=== PATIENT | female | born 1950 | race Caucasian/White ===

== ENCOUNTER 2020-08-01 14:03 | Outpatient (REF) | payer MEDICARE, OTHER, SELFPAY | END 2020-08-01 14:04 | disposition home or self-care (01) | LOC: HO.LNP 14:03 | PROVIDERS: Visit Provider Otolaryngology | DX: B37.0 Candidal stomatitis (principal) | CPT/HCPCS: 87102 ==

== ENCOUNTER 2020-08-09 08:59 | Outpatient (REF) | payer MEDICARE, OTHER, SELFPAY ==
--- NOTE | ~2020-08-09 | CT_ITS ---
EXAMINATION: CT SINUS WITHOUT CONTRAST CLINICAL INFORMATION: Sinonasal polyp, deviated nasal septum. COMPARISON: None. TECHNIQUE: Axial 2 mm thin and reformatted 2 mm sagittal and coronal images of the sinuses were obtained. This CT examination was performed using dose optimization techniques as appropriate, variously including the following: *Automated exposure control *Adjustment of mA and/or kV according to patient size (this includes techniques or standardized protocols for targeted exams where dose is matched to indication/reason for exam; i.e. extremities or head) *Use of iterative reconstruction technique DLP: 96 mGy-cm FINDINGS: There is complete opacification of bilateral frontal, maxillary, ethmoid and sphenoid sinuses consistent with pansinusitis. Bilateral frontoethmoidal and ostiomeatal complexes are completely obliterated from mucosal thickening. The bony sinus marr are intact. NASAL CAVITY/NASOPHARYNX: The nasal cavity is clear. There is minimal left nasal septal deviation/spurring. The nasopharynx is symmetric. ADDITIONAL RELEVANT FINDINGS: No periapical disease is seen. The TMJs articulate normally. The orbits and skull base soft tissues are unremarkable. The middle ear cavities and mastoid air cells are clear. Limited evaluation demonstrates no acute intracranial findings. CT/CT sinus wo con IMPRESSION: Chronic pansinusitis with obstructed drainage pathways. The bony sinus marr are intact. The nasal cavity and nasopharynx airway are widely patent.
== END 2020-08-09 09:00 | disposition home or self-care (01) ==
LOC: HO.CT 08:59
PROVIDERS: Visit Provider Otolaryngology
DX: J33.9 Nasal polyp, unspecified (principal)
CPT/HCPCS: 70486

== ENCOUNTER 2021-02-05 09:06 | Outpatient (REF) | payer MEDICARE, OTHER, SELFPAY ==
--- NOTE | ~2021-02-05 | MM_ITS ---
EXAMINATION: MM SCREENING DIGITAL BREAST TOMOSYNTHESIS, BILATERAL CLINICAL INFORMATION: Screening. Asymptomatic. The lifetime risk of breast cancer based on the Tyrer-Cuzick Model is 2.2%. COMPARISON: Mammography: February 02, 2020 and studies dating back to November 29, 2013 TECHNIQUE: Digital breast tomosynthesis is performed in both the craniocaudal and mediolateral oblique views along with computer-aided detection (CAD). Synthesized 2D images are generated from the tomosynthesis. FINDINGS: There are scattered areas of fibroglandular density (ACR BI-RADS breast composition Category b). There are no significant masses, abnormal calcifications, or other abnormalities. MM/MM tomosynthesis screening BI IMPRESSION: There are no significant changes from prior study. ASSESSMENT: BI-RADS 1: Negative RECOMMENDATION: Routine annual mammography screening. This patient's information was entered into a reminder system with a target due date for their next mammogram.
== END 2021-02-05 09:07 | disposition home or self-care (01) ==
LOC: HO.MAMMO 09:06
PROVIDERS: PCP Internal Medicine; Visit Provider Internal Medicine
DX: Z12.31 Encounter for screening mammogram for malignant neoplasm of breast (principal)
CPT/HCPCS: 77063; 77067

== ENCOUNTER 2022-02-12 08:01 | Outpatient (REF) | payer MEDICARE, OTHER, SELFPAY ==
--- NOTE | ~2022-02-12 | MM_ITS ---
EXAMINATION: MM SCREENING DIGITAL BREAST TOMOSYNTHESIS, BILATERAL CLINICAL INFORMATION: Screening. Asymptomatic. The lifetime risk of breast cancer based on the Tyrer-Cuzick Model is 2%. COMPARISON: Mammography: 02/05/2021, 02/02/2020, 10/15/2018 TECHNIQUE: Digital breast tomosynthesis is performed in both the craniocaudal and mediolateral oblique views along with computer-aided detection (CAD). Synthesized 2D images are generated from the tomosynthesis. FINDINGS: There are scattered areas of fibroglandular density (ACR BI-RADS breast composition Category b). There are no significant masses, abnormal calcifications, or other abnormalities. Parenchymal pattern is similar to prior studies. There is no developing density or architectural abnormality. The axilla and skin contours are unremarkable. No significant changes. MM/MM tomosynthesis screening BI IMPRESSION: No mammographic evidence of malignancy. ASSESSMENT: BI-RADS 1: Negative RECOMMENDATION: Routine annual mammography screening. This patient's information was entered into a reminder system with a target due date for their next mammogram.
== END 2022-02-12 08:02 | disposition home or self-care (01) ==
LOC: HO.MAMMO 08:01
PROVIDERS: PCP Internal Medicine; Visit Provider Family Medicine
DX: Z12.31 Encounter for screening mammogram for malignant neoplasm of breast (principal)
CPT/HCPCS: 77063; 77067

== ENCOUNTER 2023-02-19 11:03 | Outpatient (REF) | payer MEDICARE, OTHER, SELFPAY ==
--- NOTE | ~2023-02-19 | MM_ITS ---
EXAMINATION: MM SCREENING DIGITAL BREAST TOMOSYNTHESIS, BILATERAL CLINICAL INFORMATION: Screening. Asymptomatic. COMPARISON: Mammography: This study is compared with prior exams dating back to 2018. TECHNIQUE: Digital breast tomosynthesis is performed in both the craniocaudal and mediolateral oblique views along with computer-aided detection (CAD). Synthesized 2D images are generated from the tomosynthesis. FINDINGS: There are scattered areas of fibroglandular density (ACR BI-RADS breast composition Category b). There are no significant masses, abnormal calcifications, or other abnormalities. There is a tissue marker in the right breast from prior benign percutaneous biopsy. There are a few, bilateral, benign calcifications. MM/MM tomosynthesis screening BI IMPRESSION: No mammographic evidence of malignancy. ASSESSMENT: BI-RADS BI-RADS 2 - Benign Findings RECOMMENDATION: Routine annual mammography screening. 1 year F/U This examination should not preclude the clinical evaluation of a suspicious palpable abnormality. This patient's information was entered into a reminder system with a target due date for their next mammogram.
== END 2023-02-19 11:04 | disposition home or self-care (01) ==
LOC: HO.MAMMO 11:03
PROVIDERS: Visit Provider Internal Medicine
DX: Z12.31 Encounter for screening mammogram for malignant neoplasm of breast (principal)
CPT/HCPCS: 77063; 77067

== ENCOUNTER → 2023-02-19 11:15 | Outpatient (BNV) | payer MEDICARE, OTHER, SELFPAY | PROVIDERS: Visit Provider Radiology Diagnostic Radiology | DX: Z12.31 Encounter for screening mammogram for malignant neoplasm of breast (principal) | CPT/HCPCS: 77063; 77067 ==

== ENCOUNTER 2024-02-26 09:09 | Outpatient (REF) | payer MEDICARE, OTHER, SELFPAY ==
--- NOTE | ~2024-02-26 | MM_ITS ---
EXAMINATION: MM SCREENING DIGITAL BREAST TOMOSYNTHESIS, BILATERAL CLINICAL INFORMATION: Screening. Asymptomatic. COMPARISON: Mammography: Comparison is made with available priors TECHNIQUE: Digital breast mammography with tomosynthesis is performed in both the craniocaudal and mediolateral oblique views along with computer-aided detection (CAD). FINDINGS: The breasts are heterogeneously dense, which may obscure small masses (ACR BI-RADS breast composition Category c). There are no significant masses, abnormal calcifications, or other abnormalities. MM/MM tomosynthesis screening BI IMPRESSION: No mammographic evidence of malignancy. ASSESSMENT: BI-RADS BI-RADS 1 - Negative RECOMMENDATION: Routine annual mammography screening. 1 year F/U This examination should not preclude the clinical evaluation of a suspicious palpable abnormality. This patient's information was entered into a reminder system with a target due date for their next mammogram. Electronically signed by: Brittni Peña DO 03/09/2024 12:14 PM EDT
== END 2024-02-26 09:10 | disposition home or self-care (01) ==
LOC: HO.MAMMO 09:09
PROVIDERS: Visit Provider Internal Medicine
DX: Z12.31 Encounter for screening mammogram for malignant neoplasm of breast (principal)
CPT/HCPCS: 77063; 77067

== ENCOUNTER → 2024-02-26 09:30 | Outpatient (BNV) | payer MEDICARE, OTHER, SELFPAY | PROVIDERS: Visit Provider Internal Medicine | DX: Z12.31 Encounter for screening mammogram for malignant neoplasm of breast (principal) | CPT/HCPCS: 77063; 77067 ==

== ENCOUNTER 2025-03-07 11:14 | Outpatient (REF) | payer MEDICARE, OTHER, SELFPAY ==
--- NOTE | ~2025-03-07 | MM_ITS ---
EXAMINATION: MM SCREENING DIGITAL BREAST TOMOSYNTHESIS, BILATERAL CLINICAL INFORMATION: Screening. Asymptomatic. COMPARISON: Mammography: Comparison is made with available priors TECHNIQUE: Digital breast mammography with tomosynthesis is performed in both the craniocaudal and mediolateral oblique views along with computer-aided detection (CAD). FINDINGS: The breasts are heterogeneously dense, which may obscure small masses. There are no significant masses, abnormal calcifications, or other abnormalities. MM/MM tomosynthesis screening BI IMPRESSION: No mammographic evidence of malignancy. ASSESSMENT: BI-RADS Category 1: Negative RECOMMENDATION: Routine annual mammography screening. 1 year F/U This examination should not preclude the clinical evaluation of a suspicious palpable abnormality. This patient's information was entered into a reminder system with a target due date for their next mammogram. Electronically signed by: Brittni Peña DO 03/08/2025 06:01 PM EDT
--- OUTSIDE RECORDS SUMMARY | 2025-03-07 13:51 | XMS_ITS | Encounter Summary ---
Author Organization [facility], Address [address] [place] [address] Phone Care Team Providers Care Natural Resources Faculty Member Name Role Phone Azam Nicolas MD Primary Care Provider + [phone] Reason for Visit * Reason Comments Med Refill Encounter Details Date Type Department Care Team (Late st Contact Info) Description 09/22/2021 Refill [facility] [address] [place] [phone] Andressa Samuel PA [address] [place] [address] [place] [phone] Social History Tobacco Use Types Packs/Day Years Used Date Smoking Tobacco: Never Alcohol Use Standard Drinks/Week Comments No 0 (1 standard drink = 0.6 oz pure alcohol) Alcoholic Drinks/day: Occasional social drink Comments Unknown Sex and Gender Information Value Date Recorded Sex Assigned at Female 03/20/2021 10:28 AM EDT Legal Sex Female 4:32 PM EST Gender Identity Female 01/02/2021 8:53 PM EDT Sexual Orientation Straight 03/20/2021 10 :28 AM EDT documented as of this encounter Plan of Treatment Upcoming Encounters Date Type Department Care Team (Late st Contact Info) Description 04/04/2025 1:30 PM EST Clinical Support [facility], [address] [place] [phone] 04/04/2025 2:15 PM EST Clinical Support [facility] [address] [place] [address] Galina Hernandez, [facility]- [address] [place] [address] documented as of this encounter Visit Diagnoses Not on filedocumented in this encounter Care Teams Natural Resources Faculty Member Relationship Specialty Start Date End Date zAam Nicolas MD [address] [place] [address], [address] [place] [address] PCP - General Internal Medicine 10/29/21 documented as of this encounter
--- OUTSIDE RECORDS SUMMARY | 2025-03-07 13:51 | XMS_ITS | Encounter Summary ---
Author Organization [facility] Address [address] [place] [address] Phone Care Team Providers Care Chief Lifestyle Officer Name Role Phone Azam Nicolas MD Primary Care Provider + [phone] Jewel Casanova MD Unavailable +[phone] Naif Blanco MD Unavailable +[phone] Vanesa Soliman MD Unavailable [phone] Azam Nicolas MD Unavailable [phone] Debbie Mendes MD Unavailable [phone] Kristy Zazueta MD Unavailable [phone] Canelo Baron MD Unavailable [phone] Palmira Aiken OT Unavailable [phone] Encounter Details Date Type Department Care Team (Late st Contact Info) Description 11/06/2021 Procedure Pass [facility], [facility] - [address] [address] Social History Tobacco Use Types Packs/Day Years Used Date Smoking Tobacco: Former Cigarettes 10 15 1 965 - 1979 Smokeless Tobacco: Never Comments:Quit smoking 1979 Alcohol Use Standard Drinks/Week Comments Not Currently 0 (1 standard drink = 0.6 oz pur e alcohol) occasionally Comments No Sex and Gender Information Value Date Recorded Sex Assigned at Female 11/02/2019 5:38 PM EDT Legal Sex Female 10:05 PM EDT Gender Identity Female 11/02/2019 5:38 PM EDT Sexual Orientation Straight 11/02/2019 5: 38 PM EDT Occupation Industry Job Start Date Job End Date [employer], director, [employer] Not on file Not on file Not on file documented as of this encounter Plan of Treatment Upcoming Encounters Date Type Department Care Team (Late st Contact Info) Description 04/01/2025 9:00 AM EST [facility] Visit [facility] [address] [place] [address] Canelo Baron MD [address] [place] [address], [address] [place] [address] 05/04/2025 10:00 AM EST Office Visit [facility] [address] [place] [phone] Unknown, Unknown, Suzanne Flynn, LUDLOW MACHINE OPERATOR [address] [place] [address] 08/30/2025 11:00 AM EDT Office Visit [facility] [address] [place] [address] Azam Nicolas MD [address] [place] [address], [address] [place] [address] documented as of this encounter Visit Diagnoses Not on filedocumented in this encounter Additional Health Concerns Infection Onset Date Last Indicated Resolved Time COVID-19 11/12/2022 11/12/2022 12/03/2022 1:21 AM EDT CoV-Risk Comment:Per note documentation 04/04/2024 04/04/2024 7:56 AM EST Assessment Noted Time PHQ-2 Depression Total Score: 0 04/27/20 21 12:22 PM EST documented as of this encounter Care Teams Chief Lifestyle Officer Relationship Specialty Start Date End Date Azam Nicolas MD [address] [place] [address], [address] [place] [address] [email or web address] PCP - General Internal Medicine 09/22/20 Jewel Casanova MD [address] [place] [address] Gastroenterology 11/09/20 Naif Blanco MD [address] [place] [address], [facility] [place] [address] [email or web address] 11/09/20 Vanesa Soliman MD [address] [place] [address] [email or web address] Ophthalmology 11/09/20 Azam Nicolas MD [address] [place] [address], [address] [place] [address] [email or web address] Insurance Assigned Provider 08/23/23 Debbie Mendes MD [address] [place] [address], [address] [place] [address] Surgeon Urology 10/29/21 Kristy Zazueta MD [address] [place] [address], [address] [place] [address] [email or web address] Otolaryngology 10/29/21 Canelo Baron MD [address] [place] [address], [address] [place] [address] [email or web address] Obstetrics and Gynecology 10/29/21 Palmira Aiken, OT [address] [place] [address] [email or web address] Transitions Home Restoration Service SupervisorPest Control Worker Therapy 10/04/24 10/04/24 documented as of this encounter Additional Source Comments The information contained in this document represents components of the legal health record. It is not the complete legal health record.[facility]
--- OUTSIDE RECORDS SUMMARY | 2025-03-07 13:51 | XMS_ITS | Encounter Summary ---
Author Organization [facility] Address [address] [place] [address] Phone Care Team Providers Care Electrical Systems Drafter Name Role Phone Anita Blas DO Primary Care Provider + [phone] Anita Blas DO Unavailable [phone] Azam Nicolas MD Primary Care Provider [phone] Jewel Casanova MD Unavailable [phone] Naif Blanco MD Unavailable [phone] Vanesa Soliman MD Unavailable [phone] Anita Blas DO Unavailable [phone] Azam Nicolas MD Unavailable [phone] Debbie Mendes MD Unavailable [phone] Kristy Zazueta MD Unavailable [phone] Canelo Baron MD Unavailable [phone] Palmira Aiken OT Unavailable [phone] Encounter Details Date Type Department Care Team (Late st Contact Info) Description 04/11/2020 Procedure Pass [facility] Admitting Dept Virtual Department [address] [place], [place] [phone] Social History Tobacco Use Types Packs/Day Years [...] Orientation Straight 11/02/2019 5: 38 PM EDT documented as of this encounter Plan of Treatment Upcoming Encounters Date Type Department Care Team (Late st Contact Info) Description 04/01/2025 9:00 AM EST Office [facility] [address] [place] [address] [place] [address] Canelo Baron MD [address] [place] [address], [address] [place] [address] 05/04/2025 10:00 AM EST Office Visit [facility] [address] [place] [address] Unknown, Unknown, Suzanne Flynn, SHOPPER [address] [place] [address] [email or web address] 08/30/2025 11:00 AM EDT Office [facility] [address] [place] [address] Azam Nicolas MD [address] [place] [address], [address] [place] [address] documented as of this encounter Visit Diagnoses Not on filedocumented in this encounter Additional Health Concerns Infection Onset Date Last Indicated Resolved Time COVID-19 11/12/2022 11/12/2022 12/03/2022 1:21 AM EDT CoV-Risk Comment:Per note documentation 04/04/2024 04/04/2024 7:56 AM EST documented as of this encounter Care Teams Electrical Systems Drafter Relationship Specialty Start Date End Date Anita Blas DO [address] [place] [address] [email or web address] PCP - General Family Medicine 11/01/19 09/21/20 Azam Nicolas MD [address] [place] [address], [address] [place] [address] [email or web address] PCP - General Internal Medicine 09/22/20 Anita Blas DO [address] [place] [address] [email or web address] Insurance Assigned Provider 08/26/20 09/19/20 Jewel Casanova MD [address] [place] [address] [email or web address] Gastroenterology 11/09/20 Naif Blanco MD [address] [place] [address] [email or web address] Nephrology 11/09/20 Vanesa Soliman MD [address] [place] [address] [email or web address] [email or web address] 11/09/20 Anita Blas DO [address] [place] [address] [email or web address] Insurance Assigned Provider 08/26/20 08/25/21 Azam Nicolas MD [address] [place] [address], [address] [place] [address] Insurance Assigned Provider 08/23/23 Debbie Mendes MD [address] [place] [address], [address] [place] [address] Surgeon Urology 10/29/21 Kristy Zazueta MD [address] [place] [address], [address] [place] [address] Otolaryngology 10/29/21 aCnelo Baron MD [address] [place] [address], [address] [place] [address] Obstetrics and Gynecology 10/29/21 Palmira Aiken, OT [address] [place] [address] [email or web address] Transitions Bacteriology TeacherOracle Applications Analyst Therapy 10/04/24 10/04/24 documented as of this encounter Additional Source Comments The information contained in this document represents components of the legal health record. It is not the complete legal health record.[facility]
--- OUTSIDE RECORDS SUMMARY | 2025-03-07 13:51 | XMS_ITS | Encounter Summary ---
Author Organization [facility] Address [address] [place] [address] [place] [address] Phone Care Team Providers Care Assistant Womens Volleyball Coach Name Role Phone Azam Nicolas MD Primary Care Provider + [phone] Jewel Casanova MD Unavailable +[phone] Naif Blanco MD Unavailable [phone] Vanesa Soliman MD Unavailable [phone] Azam Nicolas MD Unavailable [phone] Debbie Mendes MD Unavailable [phone] Kristy Zazueta MD Unavailable [phone] Canelo Baron MD Unavailable [phone] Palmira Aiken OT Unavailable [phone] Encounter Details Date Type Department Care Team (Late st Contact Info) Description 10/03/2024 Procedure Pass [place] Admitting Dept - Virtual Department [address] [place], [place] [id number] Social History Tobacco Use Types Packs/Day Years Used Date Smoking Tobacco: Former Cigarettes 10 15 1 965 - 1979 Smokeless Tobacco: Never Comments:Quit smoking 1979 Alcohol Use Standard Drinks/Week Comments Not Currently 0 (1 standard drink = 0.6 oz pur e alcohol) occasionally Home Health Assessment: Transportation Answer Date Recorded Lack of Transportation (Medical) No 10/05/2024 Lack of Transportation (Non-Medical) No 10/05/2024 Patient Unable or Declines to Respond No 10/05/2024 Education Answer Date Recorded Are you interested in more education? Not on patrick e 09/13/2022 Are you concerned about learning? Not on file 09/13/2022 No 09/13/2022 No 09/13/2022 Food Answer Date Recorded Within the past 6 months we worried whether our food would run out before we got money to buy more. Never True 10/02/2024 Within the past 6 months the food we bought just didn't last and we didn't have enough money to get more. Never True Residential Stability Answer Date Recor ded What is your housing situation today? I have moi sing 10/02/2024 How many times have you move d in the past 12 months? Zero (I did not move) 10/02/2024 Paying for Meds Answer Date Recorded Do you have trouble paying for medicines? No 10/02/2024 Paying Utility Bills Answer Date Record ed Do you have trouble paying your heating or elect ricity bill? No 10/02/2024 Transportation Answer Date Recorded Has the lack of transportati on kept you from medical appointments or from getting medications? No 10/02/2024 Digital Access Answer Date Recorded No 10/02/2024 Yes 10/02/2024 Do you have reliable internet access at home? Ye s 10/02/2024 Do you have a device (e.g., phone, tablet, computer) with a working camera? Yes 10/02/2024 Intimate Partner Violence Answer Date R ecorded Are you denied basic needs s uch as food, clothing, or medical care? No 10/02/2024 In the past 12 months have y ou been in a relationship with a person who hurts, threatens, or tries to control you? No 10/02/2024 Are you denied basic needs s uch as food, clothing, or medical care? No 10/02/2024 In the past 12 months have y ou been in a relationship with a person who hurts, threatens, or tries to control you? No 10/02/2024 Comments No Sex and Gender Information Value [...] [facility] [address] [place] [address] [place] [address] Canelo Baron MD [address] [place] [address], [address] [place] [address] 05/04/2025 10:00 AM EST Office Visit [facility] [address] [place] [address] Unknown, Unknown, Suzanne Flynn, DIVISION TRAFFIC SUPERINTENDENT [address] [place] [address] 08/30/2025 11:00 AM EDT Office [facility] [address] [place] [address] Azam Nicolas MD [address] [place] [address], [address] [place] [address] documented as of this encounter Visit Diagnoses Not on filedocumented in this encounter Additional Health Concerns Assessment Noted Time PHQ-2 Depression Total Score: 0 08/11/19 25 7:14 PM EDT documented as of this encounter Care Teams Assistant Womens Volleyball Coach Relationship Specialty Start Date End Date Azam Nicolas MD [address] [place] [address], [address] [place] [address] [email or web address] PCP - General Internal Medicine 09/22/20 Jewel Casanova MD [address] [place] [address] Gastroenterology 11/09/20 Naif Blanco MD [address] [place] [address], [place] [address] [email or web address] [email or web address] 11/09/20 Vanesa Soliman MD [address] [place] [address] [email or web address] Ophthalmology 11/09/20 Azam Nicolas MD [address] [place] [address], [address] [place] [address] [email or web address] Insurance Assigned Provider 08/23/23 Debbie Mendes MD [address] [place] [address], [address] [place] [address] Surgeon Urology 10/29/21 Kristy Zazueta MD [address] [place] [address], [address] [place] [address] [email or web address] Otolaryngology 10/29/21 Canelo Baron MD [address] [place] [address], [address] [place] [address] Obstetrics and Gynecology 10/29/21 Palmira Aiken, OT [address] [place] [address] (work) [email or web address] Transitions Tray ServerNewspaper Illustrator Therapy 10/04/24 10/04/24 documented as of this encounter Additional Source Comments The information contained in this document represents components of the legal health record. It is not the complete legal health record.[facility]
--- OUTSIDE RECORDS SUMMARY | 2025-03-07 13:51 | XMS_ITS | Encounter Summary ---
Author Organization [facility] Address [address] [place] [address] Phone Care Team Providers Care Programmer Business Name Role Phone Azam Nicolas MD Primary Care Provider [phone] Jewel Casanova MD Unavailable [phone] Naif Blanco MD Unavailable [phone] Vanesa Soliman MD Unavailable [phone] Azam Nicolas MD Unavailable [phone] Debbie Mendes MD Unavailable [phone] Kristy Zazueta MD Unavailable [phone] Canelo Baron MD Unavailable [phone] Palmira Aiken OT Unavailable [phone] Reason for Referral * MRI/CAT Scan - Closed Specialty Diagnoses / Procedures Referred By Contac t Referred To Contact Radiology Diagnoses Other allergic rhinitis Nasal congestion Disturbance of smell and taste Procedures CT Face CHG CT SCAN,MAXILLOFACIAL AREA,W/O CONTRAST Genie West MD Phone: tel: fax: [email or web address] Referral ID Status Reason Start Date Expiration Date Visits Re quested Visits Authorized [id number] Closed 11/06/2021 01/05/2022 1 1 Encounter Details Date Type Department Care Team (Late Contact Info) Description 11/06/2021 Transcribe Orders Virtual Department [address] [place] [address] Genie West MD [address] [place] [address] [email or web address] Other allergic rhinitis (Primary Dx); Nasal congestion; Disturbance of smell and taste Social History Tobacco Use Types Packs/Day Years Used Date Smoking Tobacco: Former Cigarettes 1979 Smokeless Tobacco: Never Comments:Quit smoking 1979 [...] Start Date 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 Not on file Not on file Not on file documented as of this encounter Plan of Treatment Upcoming Encounters Date Type Department Care Team (Late Contact Info) Description 04/01/2025 9:00 AM EST Office [facility] [address] [place] [address] [place] [address] Canelo Baron MD [address] [place] [address], [address] [address] 05/04/2025 10:00 AM EST Office Visit [facility] [address] [place] [address] Unknown, Unknown, Suzanne Flynn, STOCK DEALER [address] [place] [address] 08/30/2025 11:00 AM EDT Office Visit [facility] [address] [place] [address] Azam Nicolas MD [address] [facility], [address] [place] [address] [email or web address] documented as of this encounter Results * CT FACE (SINUS) WITHOUT CONTRAST (11/20/2021 3:50 PM EDT) Anatomical Region Laterality Modality Face Computed Tomogra phy 11/21/2021 10:4 9 AM EDT Impressions 11/21/2021 11:02 AM EDT 1.Severe mucosal thickening of the ethmoid air cells and maxillary and sphenoid sinuses with near complete opacification. 2.Mildly atelectatic right maxillary sinus with mild wall thickening and sclerosis, consistent with chronic sinusitis. 3.Small amount of fluid in the right mastoid air cells. 4.Mild-moderate leftward deviation of the nasal septum. Narrative 11/21/2021 11:[address] FACE (SINUS) WITHOUT CONTRAST TECHNIQUE: Multidetector-row CT of the sinuses was performed without intravenous contrast using tailored dose modulation techniques. Images were reconstructed in the axial, coronal, and sagittal planes. COMPARISON: None FINDINGS: Frontal sinuses: Hypoplastic Frontoethmoidal junctions: Opacified on the left Anterior and posterior ethmoid air cells: Severe mucosal thickening with near complete opacification Maxillary sinuses and infundibula: Severe mucosal thickening of the mildly atelectatic right maxillary sinus with near complete opacification. Mild diffuse osseous wall thickening/sclerosis, consistent with chronic sinusitis Complete opacification of the left maxillary sinus. Bilateral infundibular obstruction primarily due to mucosal thickening, and agger nasi cells Sphenoid sinuses and sphenoethmoidal recesses: Near complete opacification, left worse than right Nasal cavity: Mild to moderate leftward deviation of the nasal septum Imaged maxillary teeth: Unremarkable Mastoid air cells and middle ear cavities: Small amount of fluid in the right mastoid air cells. The left mastoid air cells are clear Temporomandibular joints: Mild to moderate degenerative changes on the right Brain: Images of the brain parenchyma are not of diagnostic quality for the soft tissues. No focal abnormality is visible with this technique. Orbits and globes: Bilateral ocular lens implants Procedure Note Kiley Rivas MD - 11/21/2021 CT FACE (SINUS) WITHOUT CONTRAST TECHNIQUE: Multidetector-row CT of the sinuses was performed withoutintravenous contrast using tailored dose modulation techniques. Imageswere reconstructed in the axial, coronal, and sagittal planes. COMPARISON: None FINDINGS: Frontal sinuses: Hypoplastic Frontoethmoidal junctions: Opacified on the left Anterior and posterior ethmoid air cells: Severe mucosal thickening withnear complete opacification Maxillary sinuses and infundibula: Severe mucosal thickening of the mildlyatelectatic right maxillary sinus with near complete opacification. Milddiffuse osseous wall thickening/sclerosis, consistent with chronicsinusitis Complete opacification of the left maxillary sinus. Bilateral infundibular obstruction primarily due to mucosal thickening,and agger nasi cells Sphenoid sinuses and sphenoethmoidal recesses: Near completeopacification, left worse than right Nasal cavity: Mild to moderate leftward deviation of the nasal septum Imaged maxillary teeth: Unremarkable Mastoid air cells and middle ear cavities: Small amount of fluid in theright mastoid air cells. The left mastoid air cells are clear Temporomandibular joints: Mild to moderate degenerative changes on theright Brain: Images of the brain parenchyma are not of diagnostic quality forthe soft tissues. No focal abnormality is visible with this technique. Orbits and globes: Bilateral ocular lens implants IMPRESSION: 1.Severe mucosal thickening of the ethmoid air cells and maxillary andsphenoid sinuses with near complete opacification. 2.Mildly atelectatic right maxillary sinus with mild wall thickening andsclerosis, consistent with chronic sinusitis. 3.Small amount of fluid in the right mastoid air cells. 4.Mild-moderate leftward deviation of the nasal septum. Genie West MD IMG CT HEAD/NECK Fin al Result documented in this encounter Visit Diagnoses Diagnosis Other allergic rhinitis- Primary Nasal congestion Other diseases of nasal cavity and sinuses Disturbance of smell and taste Other allergic rhinitis Nasal congestion Other diseases of nasal cavity and sinuses Disturbance of smell and taste documented in this encounter Additional Health Concerns Infection Onset Date Last Indicated Resolved Time COVID-19 11/12/2022 11/12/2022 12/03/2022 1:21 AM EDT CoV-Risk Comment:Per note documentation 04/04/2024 04/04/2024 7:56 AM EST Assessment Noted Time PHQ-2 Depression Total Score: 0 04/27/20 12:22 PM EST documented as of this encounter Care Teams Programmer Business Relationship Specialty Start Date End Date Azam Nicolas MD [address] [place] [address], [address] [address] [email or web address] PCP - General Internal Medicine 09/22/20 Jewel Casanova MD [address] [place] [address] [email or web address] Gastroenterology 11/09/20 Naif Blanco MD [address] [place] [address] [place] [address] [email or web address] 11/09/20 Vanesa Soliamn MD [address] [place] [address] [email or web address] Ophthalmology 11/09/20 Azam Nicolas MD [address] [place] [address], [address] [place] [address] [email or web address] Insurance Assigned Provider 08/23/23 Debbie Mendes MD [address] [place] [address], [address] [place] [address] [email or web address] Surgeon Urology 10/29/21 Kristy Zazueta MD [address] [place] [address], [address] [place] [address] [email or web address] Otolaryngology 10/29/21 Canelo Baron MD [address] [place] [address], [address] [place] [address] Obstetrics and Gynecology 10/29/21 Palmira Aiken, OT [address] [place] [address] [email or web address] Transitions Steam EngineerGrain Packer Therapy 10/04/24 10/04/24 documented as of this encounter Additional Source Comments The information contained in this document represents components of the legal health record. It is not the complete legal health record.[facility]
--- OUTSIDE RECORDS SUMMARY | 2025-03-07 13:52 | XMS_ITS | Encounter Summary ---
Author Organization [facility] Address [address] [place] [address] [place] [address] Phone Care Team Providers Care Presser First Name Role Phone Azam Nicolas MD Primary Care Provider + [phone] Jewel Casanova MD Unavailable [phone] Naif Blanco MD Unavailable [phone] Vanesa Soliman MD Unavailable [phone] Azam Nicolas MD Unavailable [phone] Debbie Mendes MD Unavailable [phone] Kristy Zazueta MD Unavailable [phone] Canelo Baron MD Unavailable [phone] Palmira Aiken OT Unavailable [phone] Encounter Details Date Type Department Care Team (Late st Contact Info) Description 04/04/2024 Procedure Pass [facility], Ct Scan - [facility] [address] [place] [address] Social History Tobacco Use Types Packs/Day Years Used Date Smoking Tobacco: Former Cigarettes 10 15 1 965 - 1979 Smokeless Tobacco: Never Comments:Quit smoking 1979 Alcohol Use Standard Drinks/Week Comments Not Currently 0 (1 standard drink = 0.6 oz pur e alcohol) occasionally Education Answer Date Recorded Are you interested in more education? Not on patrick e 09/13/2022 Are you concerned about learning? Not on file 09/13/2022 No 09/13/2022 No 09/13/2022 Food Answer Date Recorded Within the past 6 months we worried whether our food would run out before we got money to buy more. Never True 04/04/2024 Within the past 6 months the food we bought just didn't last and we didn't have enough money to get more. Never True Residential Stability Answer Date Recor ded What is your housing situation today? I have moi sing 04/04/2024 How many times have you move d in the past 12 months? Zero (I did not move) 04/04/2024 Paying for Meds Answer Date Recorded Do you have trouble paying for medicines? No 04/04/2024 Paying Utility Bills Answer Date Record ed Do you have trouble paying your heating or elect ricity bill? No 04/04/2024 Transportation Answer Date Recorded Has the lack of transportati on kept you from medical appointments or from getting medications? No 04/04/2024 Digital Access Answer Date Recorded No 04/04/2024 Yes 04/04/2024 Do you have reliable internet access at home? Ye s 04/04/2024 Do you have a device (e.g., phone, tablet, computer) with a working camera? Yes 04/04/2024 Intimate Partner Violence Answer Date R ecorded Are you denied basic needs s [facility] as food, clothing, or medical care? No 04/04/2024 In the past 12 months have y ou been in a relationship with a person who hurts, threatens, or tries to control you? No 04/04/2024 Are you denied basic needs s [facility] as food, clothing, or medical care? No 04/04/2024 In the past 12 months have y ou been in a relationship with a person who hurts, threatens, or tries to control you? No 04/04/2024 Comments No Sex and Gender Information Value Date Recorded Sex Assigned at Female 11/02/2019 5:38 PM EDT Legal Sex Female 10:05 PM EDT Gender Identity Female 11/02/2019 5:38 PM EDT Sexual Orientation Straight 11/02/2019 5: 38 PM EDT Occupation Industry Job Start Date Job End Date [employer], director, [employer] Not on file Not on file Not on file documented as of this encounter Functional Status * Calculated C-SSRS Risk Score (Lifetime/Recent) Answer Date of Assessment Author No Risk Indicated 04/04/2024 11:12 AM Madhav Mcleod RN * [place] Suicide Severity Rating Scale (Screener/Recent Self-Report) Question Answer Date of Assessment Author 1. Wish to be (Past 1 Month) No 04/04/2024 11:12 AM Lupe Mcleod RN 2. Non-Specific Active Suicidal Thoughts (Past 1 Month) No 04/04/2024 11:12 AM Lupe Mcleod RN 6. Suicidal Behavior (Lifetime) No 04/04/2024 11:12 AM Lupe Mcleod RN documented as of this encounter Plan of Treatment Upcoming Encounters Date Type Department Care Team (Late st Contact Info) Description 04/01/2025 9:00 AM EST Office Visit [facility] [address] [place] [address] [place] [address] Canelo Baron MD [address] [place] [address], [address] [place] [address] 05/04/2025 10:00 AM EST Office Visit [facility] [address] [place] [address] Unknown, Unknown, Suzanne Flynn, TWIST MAKER [address] [place] [id number] 08/30/2025 11:00 AM EDT Office Visit [facility] [address] [place] [address] [place] [address] Azam Nicolas MD [address] [place] [address], [address] [place] [address] documented as of this encounter Visit Diagnoses Not on filedocumented in this encounter Additional Health Concerns Infection Onset Date Last Indicated Resolved Time CoV-Risk Comment:Per note documentation 04/04/2024 04/04/2024 4 7:56 AM EST Assessment Noted Time PHQ-2 Depression Total Score: 0 04/27/20 23 4:12 PM EST documented as of this encounter Care Teams Presser First Relationship Specialty Start Date End Date Azam Nicolas MD [address] [place] [address], [address] [place] [address] [email or web address] PCP - General Internal Medicine 09/22/20 Jewel Casanova MD [address] [place] [address] Gastroenterology 11/09/20 Naif Blanco MD [address] [place] [address] [email or web address] 11/09/20 Vanesa Soliman MD [address] [place] [address] [email or web address] Ophthalmology 11/09/20 Azam Nicolas MD [address] [place] [address], [address] [place] [address] [email or web address] Insurance Assigned Provider 08/23/23 Debbie Mendes MD [address] [place] [address], [address] [place] [address] Surgeon Urology 10/29/21 Kristy Zazueta MD [address] [place] [address], [address] [place] [address] [email or web address] Otolaryngology 10/29/21 Canelo Baron MD [address] [place] [address], [address] [place] [address] Obstetrics and Gynecology 10/29/21 Palmira Aiken, OT [address] [place] [address] [email or web address] Transitions BoatwrightAutomatic Gluing Machine Operator Therapy 10/04/24 10/04/24 documented as of this encounter Additional Source Comments The information contained in this document represents components of the legal health record. It is not the complete legal health record.[facility]
--- OUTSIDE RECORDS SUMMARY | 2025-03-07 13:52 | XMS_ITS | Encounter Summary ---
Author Organization [facility] Address [address] [place] [address] Phone Care Team Providers Care Deputy Jailer Name Role Phone Azam Nicolas MD Primary Care Provider + [phone] Reason for Visit * Reason Onset Date Comments Med Refill 10/31/2022 Encounter Details Date Type Department Care Team (Late st Contact Info) Description 10/31/2022 Refill [facility] [address] [place] [address] Andressa Samuel PA [address] [place] [address] [place] [phone] Social History Tobacco Use Types Packs/Day Years [...] Clinical Support [facility] [address] [facility] [address] 04/04/2025 2:15 PM EST Clinical Support [facility] [place] [address] [place] [address] Galina Hernandez FNP-[place] [address] [place] [address] documented as of this encounter Visit Diagnoses Not on filedocumented in this encounter Care Teams Deputy Jailer Relationship Specialty Start Date End Date Azam Nicolas MD [address] [place] [address], [address] [place] [address] PCP - General Internal Medicine 10/29/21 documented as of this encounter
--- OUTSIDE RECORDS SUMMARY | 2025-03-07 13:52 | XMS_ITS | Encounter Summary ---
Author Organization [facility] Address [address] [place] [address] [place] [address] Phone Care Team Providers Care Russian Rubber Name Role Phone Azam Nicolas MD Primary Care Provider + [phone] Jewel Casanova MD Unavailable [phone] Naif Blanco MD Unavailable [phone] Vanesa Soliman MD Unavailable [phone] Azam Nicolas MD Unavailable [phone] Debbie Mendes MD Unavailable [phone] Kristy Zazueta MD Unavailable [phone] Canelo Baron MD Unavailable [phone] Palmira Aiken OT Unavailable [phone] Encounter Details Date Type Department Care Team (Late st Contact Info) Description 04/04/2024 Procedure Pass [facility], Ct Scan - [facility] [address] [place] [address] Social History Tobacco Use Types Packs/Day Years [...] ecorded Are you denied basic needs s [facility] as food, clothing, or medical care? No 04/04/2024 In the past 12 months have y ou been in a relationship with a person who hurts, threatens, or tries to control you? No 04/04/2024 Are you denied basic needs s [facility] as food, clothing, or medical care? No [...] 04/04/2024 11:12 AM Madhav Mcleod RN * [place] Suicide Severity Rating Scale (Screener/Recent Self-Report) Question Answer Date of Assessment Author 1. Wish to be (Past 1 Month) No 04/04/2024 11:12 AM Lupe Mcleod RN 2. Non-Specific Active Suicidal Thoughts (Past 1 Month) No 04/04/2024 11:12 AM Lpue Mcleod RN 6. Suicidal Behavior (Lifetime) No 04/04/2024 11:12 AM Lupe Mcleod RN documented as of this encounter Plan of Treatment Upcoming Encounters Date Type Department Care Team (Late st Contact Info) Description 04/01/2025 9:00 AM EST Office Visit [facility] [address] [place] [address] [place] [address] Canelo Baron MD [address] [place] [address], [address] [place] [address] 05/04/2025 10:00 AM EST Office Visit [facility] [address] [place] [address] Unknown, Unknown, Suzanne Flynn, OUTREACH ASSISTANT [address] [place] [id number] 08/30/2025 11:00 AM EDT Office Visit [facility] [address] [place] [address] [place] [address] Azam Nicolas MD [address] [place] [address], [address] [place] [address] documented as of this encounter Visit Diagnoses Not on filedocumented in this encounter Additional Health Concerns Infection Onset Date Last Indicated Resolved Time CoV-Risk Comment:Per note documentation 04/04/2024 04/04/2024 4 7:56 AM EST Assessment Noted Time PHQ-2 Depression Total Score: 0 04/27/20 23 4:12 PM EST documented as of this encounter Care Teams Russian Rubber Relationship Specialty Start Date End Date Azam Nicolas MD [address] [place] [address], [address] [place] [address] [email or web address] PCP - General Internal Medicine 09/22/20 Jewel Casanova MD [address] [place] [address] Gastroenterology 11/09/20 Naif Blanco MD [address] [place] [address] [email or web address] 11/09/20 Vanesa Soliman MD [address] [place] [address] [email or web address] Ophthalmology 11/09/20 Azam Nicloas MD [address] [place] [address], [address] [place] [address] [email or web address] Insurance Assigned Provider 08/23/23 Debbie Mendes MD [address] [place] [address], [address] [place] [address] Surgeon Urology 10/29/21 Kristy Zazueta MD [address] [place] [address], [address] [place] [address] [email or web address] Otolaryngology 10/29/21 Canelo Baron MD [address] [place] [address], [address] [place] [address] Obstetrics and Gynecology 10/29/21 Palmira Aiken, OT [address] [place] [address] [email or web address] Transitions Printing Sales RepresentativeCoffee Sampler Therapy 10/04/24 10/04/24 documented as of this encounter Additional Source Comments The information contained in this document represents components of the legal health record. It is not the complete legal health record.[facility]
--- OUTSIDE RECORDS SUMMARY | 2025-03-07 13:52 | XMS_ITS | Encounter Summary ---
Author Organization [facility] Address [address] [place] [address] [place] [address] Phone Care Team Providers Care Bead Wire Taper Name Role Phone Azam Nicolas MD Primary Care Provider + [phone] Jewel Casanova MD Unavailable [phone] Naif Blanco MD Unavailable [phone] Vanesa Soliman MD Unavailable [phone] Azam Nicolas MD Unavailable [phone] Debbie Mendes MD Unavailable [phone] Kristy Zazueta MD Unavailable [phone] Canelo Baron MD Unavailable [phone] Palmira Aiken OT Unavailable [phone] Encounter Details Date Type Department Care Team (Late st Contact Info) Description 04/04/2024 Procedure Pass [facility], Ct Scan - [facility] [address] [place] [address] Social History Tobacco Use Types Packs/Day Years [...] ecorded Are you denied basic needs s [facility] as food, clothing, or medical care? No 04/04/2024 In the past 12 months have y ou been in a relationship with a person who hurts, threatens, or tries to control you? No 04/04/2024 Are you denied basic needs s [facility] as food, clothing, or medical care? No [...] 04/04/2024 11:12 AM Madhav Mcleod RN * [place] Suicide Severity Rating Scale (Screener/Recent Self-Report) Question [...] [facility] [address] [place] [address] [place] [address] Canelo Baron MD [address] [place] [address], [address] [place] [address] 05/04/2025 10:00 AM EST Office Visit [facility] [address] [place] [address] Unknown, Unknown, Suzanne Flynn, FIRE INVESTIGATOR [address] [place] [address] [id number] 08/30/2025 11:00 AM EDT Office Visit [facility] [address] [place] [address] [place] [address] Azam Nicolas MD [address] [place] [address], [address] [place] [address] documented as of this encounter Visit Diagnoses Not on filedocumented in this encounter Additional Health Concerns Infection Onset Date Last Indicated Resolved Time CoV-Risk Comment:Per note documentation 04/04/2024 04/04/2024 4 7:56 AM EST Assessment Noted Time PHQ-2 Depression Total Score: 0 04/27/20 23 4:12 PM EST documented as of this encounter Care Teams Bead Wire Taper Relationship Specialty Start Date End Date Azam Nicolas MD [address] [place] [address], [address] [place] [address] [email or web address] PCP - General Internal Medicine 09/22/20 Jewel Casanova MD [address] [place] [address] Gastroenterology 11/09/20 Naif Blanco MD [address] [place] [address] [email or web address] 11/09/20 Vanesa Soliman MD [address] [place] [address] [email or web address] Ophthalmology 11/09/20 Azam Nicolas MD [address] [place] [address], [address] [place] [address] [email or web address] Insurance Assigned Provider 08/23/23 Debbie Mendes MD [address] [place] [address], [address] [place] [address] Surgeon Urology 10/29/21 Kristy Zazueta MD [address] [place] [address], [address] [place] [address] [email or web address] Otolaryngology 10/29/21 Canelo Baron MD [address] [place] [address], [address] [place] [address] Obstetrics and Gynecology 10/29/21 Palmira Aiken, OT [address] [place] [address] [email or web address] Transitions Edge KitterCyber Operator Therapy 10/04/24 10/04/24 documented as of this encounter Additional Source Comments The information contained in this document represents components of the legal health record. It is not the complete legal health record.[facility]
--- OUTSIDE RECORDS SUMMARY | 2025-03-07 13:52 | XMS_ITS | Encounter Summary ---
Author Organization [facility] Address [address] [place] [address] Phone Care Team Providers Care Actuarial Clerk Name Role Phone Anita Blas DO Primary Care Provider Anita Blas DO Unavailable [phone] Azam Nicolas MD Primary Care Provider [phone] Jewel Casanova MD Unavailable [phone] Naif Blanco MD Unavailable [phone] Vanesa Soliman MD Unavailable [phone] Anita Blas DO Unavailable [phone] Azam Nicolas MD Unavailable [phone] Debbie Mendes MD Unavailable [phone] Kristy Zazueta MD Unavailable [phone] Canelo Baron MD Unavailable Palmira Aiken OT Unavailable [phone] Encounter Details Date Type Department Care Team (Latest Contact Info) Description 02/18/2020 Transcribe Orders [facility] Laboratory [address] Floor [place], [place] [phone] Jewel Casanova MD [address] [facility] 2 [place], [place] [phone] Diarrhea, unspecified type (Primary Dx) Social History Tobacco Use Types Packs/Day Years Used Date Smoking Tobacco: Former Cigarettes 03 02 1 1979 Smokeless Tobacco: Never Comments:Quit smoking 1979 Alcohol Use Standard Drinks/Week Comments Yes 0 (1 standard drink = 0.6 oz [...] Description 04/01/2025 9:00 AM EST Office Visit [facility] [address] [place] [address] [place] [address] Canelo Baron MD [address] [place] [address], [address] [place] [address] 05/04/2025 10:00 AM EST Office Visit [facility] [address] [place] [address] Unknown, Unknown, Suzanne Flynn, INSTRUCTOR DANCING 10 [place] [address] 08/30/2025 11:00 AM EDT Office Visit [facility] [address] [place] [address] Azam Nicolas MD [address] [place] [address], [address] [place], [place] [phone] documented as of this encounter Results * Immunoglobulin A (02/18/2020 3:02 PM EDT) IgA 86 70 - 400 mg/dL [facility] Blood 02/18/2020 3:02 PM EDT 02/18/2020 3:06 PM EDT Jewel Casanova MD LAB BLOOD ORDERABLES Final Result [facility] [address] [place] [address] * Tissue transglutaminase IgA (02/18/2020 3:02 PM EDT) TTG IGA ANTIBODY <1.2 <4.0 (Negative) U/mL [facility] Blood 02/18/2020 3:02 PM EDT 02/18/2020 3:06 PM EDT Jewel Casanova MD LAB BLOOD ORDERABLES Final Result Performing Organization Address City/[facility]/ZIP Co de Phone Number [facility] [address] [place] [address] documented in this encounter Visit Diagnoses Diagnosis Diarrhea, unspecified type- Primary documented in this encounter Additional Health Concerns Infection Onset Date Last Indicated Resolved Time COVID-19 11/12/2022 11/12/2022 12/03/2022 1:21 AM EDT CoV-Risk Comment:Per note documentation 04/04/2024 04/04/2024 7:56 AM EST documented as of this encounter Care Teams Actuarial Clerk Relationship Specialty Start Date End Date Anita Blas DO [address] [place] [address] [email or web address] PCP - General Family Medicine 11/01/19 09/21/20 Azam Nicolas MD [address] [place] [address], [address] [place] [address] PCP - General Internal Medicine 09/22/20 Anita Blas DO [address] [place] [address] [email or web address] Insurance Assigned Provider 08/26/20 09/19/20 Jewel Casanova MD [address] [place] [address] Gastroenterology 11/09/20 Naif Blanco MD [address] [place] [address], [facility] [place] [address] [email or web address] 11/09/20 Vanesa Soliman MD [address] [place] [address] [email or web address] 11/09/20 Anita Blas DO [address] [place] [address] [email or web address] Insurance Assigned Provider 08/26/20 08/25/21 Azam Nicolas MD [address] [place] [address], [address] [place] [address] Insurance Assigned Provider 08/23/23 Debbie Mendes MD [address] [place] [address], [address] [place] [address] Surgeon Urology 10/29/21 Kristy Zazueta MD [address] [place] [address], [address] [place] [address] Otolaryngology 10/29/21 Canelo Baron MD [address] [place] [address], [facility] [address] [place] [address] [email or web address] Obstetrics and Gynecology 10/29/21 Palmira Aiken, OT [address] [place] [address] Transitions Numerical Control Drill Press OperatorGrades 7 And 8 Teacher Therapy 10/04/24 10/04/24 documented as of this encounter Additional Source Comments The information contained in this document represents components of the legal health record. It is not the complete legal health record.[facility]
--- OUTSIDE RECORDS SUMMARY | 2025-03-07 13:53 | XMS_ITS | Encounter Summary ---
Author Organization [facility] Address [address] [place] [address] Phone Care Team Providers Care Fishing Vessel Deckhand Name Role Phone Azam Nicolas MD Primary Care Provider + [phone] Reason for Visit * Reason Comments Med Refill Encounter Details Date Type Department Care Team (Late st Contact Info) Description 02/16/2023 Refill [facility] [address] [place] [address] Naif Blanco MD [address] [place] [address] [place] [phone] Social History Tobacco Use Types Packs/Day Years [...] Clinical Support [facility] [address] [place] [address] 04/04/2025 2:15 PM EST Clinical Support [facility] [place] [address] [place] [address] Galina Hernandez, [facility] [address] [place] [address] documented as of this encounter Visit Diagnoses Not on filedocumented in this encounter Care Teams Fishing Vessel Deckhand Relationship Specialty Start Date End Date Azam Nicolas MD [address] [place] [address], [address] [place] [address] PCP - General Internal Medicine 10/29/21 documented as of this encounter
--- OUTSIDE RECORDS SUMMARY | 2025-03-07 13:53 | XMS_ITS | Encounter Summary ---
Author Organization [facility] [place], Address [address] [place] [address] Phone Care Team Providers Care Gas Prover Name Role Phone Azam Nicolas MD Primary Care Provider [phone] Reason for Visit * Reason Comments Med Refill Encounter Details Date Type Department Care Team (Late st Contact Info) Description 02/26/2021 Refill [facility] [address] [place] [phone] Naif Blanco MD [address] [place] [phone] Social History Tobacco Use Types Packs/Day Years [...] Orientation Straight 03/20/2021 10 :28 AM EDT COVID-19 Exposure Response Date Recorded In the last month, have you been in contact with someone who was confirmed or suspected to have Coronavirus / COVID-19? No / Unsure 02/26/2021 10:41 AM EDT documented as of this encounter Plan of Treatment Upcoming Encounters Date Type Department Care Team (Late st Contact Info) Description 04/04/2025 1:30 PM EST Clinical Support [facility] [address] [place] [address] 04/04/2025 2:15 PM EST Clinical Support [facility] [address] [place] [phone] Galina Hernandez, FINGERER-C [address] [place] [address] documented as of this encounter Visit Diagnoses Not on filedocumented in this encounter Care Teams Gas Prover Relationship Specialty Start Date End Date Azam Nicolas MD [address] [place] [address], [address] [place] [address] PCP - General Internal Medicine 10/29/21 documented as of this encounter
--- OUTSIDE RECORDS SUMMARY | 2025-03-07 13:53 | XMS_ITS | Encounter Summary ---
Author Organization [facility] Address [address] [place] [address] Phone Care Team Providers Care Patient Registration Clerk Name Role Phone Azam Nicolas MD Primary Care Provider + [phone] Jewel Casanova MD Unavailable [phone] Naif Blanco MD Unavailable [phone] Vanesa Soliman MD Unavailable [phone] Azam Nicolas MD Unavailable [phone] Debbie Mendes MD Unavailable [phone] Kristy Zazueta MD Unavailable [phone] Canelo Baron MD Unavailable [phone] Palmira Aiken OT Unavailable [phone] Encounter Details Date Type Department Care Team (Latest Contact Info) Description 02/18/2023 Transcribe Orders [facility] Laboratory [address] Floor [place], [place] [phone] Jewel Casanova MD [address] [facility] 2 [place], [place] [id number] Change in bowel habits (Primary Dx) Social History Tobacco Use Types Packs/Day Years Used Date Smoking Tobacco: Former Cigarettes 10 15 1 965 - 1980 Smokeless Tobacco: Never Comments:Quit smoking 1979 Alcohol Use Standard Drinks/Week Comments Not Currently 0 (1 standard drink = 0.6 oz pur e alcohol) occasionally Education Answer Date Recorded Are you interested in more education? Not on patrick e 09/13/2022 Are you concerned about learning? Not on file 09/13/2022 No 09/13/2022 No 09/13/2022 Digital Access Answer Date Recorded No 10/14/2022 No 10/14/2022 Reliable internet access at home? Not on file 10/14/2022 Device with a working camera? Not on file Comments No Sex and Gender Information Value Date Recorded Sex Assigned at Female 11/02/2019 5:38 PM EDT Legal Sex Female 10:05 PM EDT Gender Identity Female 11/02/2019 5:38 PM EDT Sexual Orientation Straight 11/02/2019 5: 38 PM EDT Occupation Industry Job Start Date Job End Date [employer], director, [employer] Not on file Not on file Not on file documented as of this encounter Plan of Treatment Upcoming Encounters Date Type Department Care Team (Late st Contact Info) Description 04/01/2025 9:00 AM EST [facility] Visit [facility] [address] [place] [address] [place] [address] Canelo Baron MD [address] [place] [address], [address] [place] [address] 05/04/2025 10:00 AM EST Office Visit [facility] Gastroenterology Clinic [address] [place] [address] Unknown, Unknown, Suzanne Flynn, INSTRUCTION LIBRARIAN 10 [place] [address] 08/30/2025 11:00 AM EDT Office Visit [facility] [place] [facility] [address] [place] [address] Azam Nicolas MD [address] [place] [address], [address] [place] [address] [email or web address] documented as of this encounter Results * Immunoglobulin A (02/18/2023 3:17 PM EDT) IgA 75 70 - 400 mg/dL [facility] Blood 02/18/2023 3:17 PM EDT 02/18/2023 3:21 PM EDT us Jewel Casanova MD LAB BLOOD ORDERABLES Final Result Performing Organization Address City/[facility]/ZIP Co de Phone Number [facility] [address] [place] [address] * Tissue transglutaminase IgA (02/18/2023 3:17 PM EDT) TTG IGA ANTIBODY <1.2 <4.0 (Negative) U/mL [facility] Blood 02/18/2023 3:17 PM EDT 02/18/2023 3:21 PM EDT us Jewel Casanova MD LAB BLOOD ORDERABLES Final Result Performing Organization Address City/[facility]/ZIP Co de Phone Number [facility] [address] [place] [address] documented in this encounter Visit Diagnoses Diagnosis Change in bowel habits- Primary Other symptoms involving digestive system documented in this encounter Additional Health Concerns Infection Onset Date Last Indicated Resolved Time CoV-Risk Comment:Per note documentation 04/04/2024 04/04/2024 4 7:56 AM EST Assessment Noted Time PHQ-2 Depression Total Score: 0 07/11/19 23 1:00 PM EST documented as of this encounter Care Teams Patient Registration Clerk Relationship Specialty Start Date End Date Azam Nicolas MD [address] [place] [address], [address] [place] [address] [email or web address] PCP - General Internal Medicine 09/22/20 Jewel Casanova MD [address] [place] [address] Gastroenterology 11/09/20 Naif Blanco MD [address] [place] [address], [place] [address] [email or web address] 11/09/20 Vanesa Soliman MD [address] [place] [address] [email or web address] Ophthalmology 11/09/20 Azam Nicolas MD [address] [place] [address], [address] [place] [address] [email or web address] Insurance Assigned Provider 08/23/23 Debbie Mendes MD [address] [place] [address], [address] [place] [address] Surgeon Urology 10/29/21 Kristy Zazueta MD [address] [place] [address], [address] [place] [address] [email or web address] [email or web address] 10/29/21 Canelo Baron MD [address] [place] [address], [address] [place] [address] Obstetrics and Gynecology 10/29/21 Palmira Aiken, OT [address] [place] [address] (work) [email or web address] Transitions Vocational DirectorRetail Assistant Store Manager Therapy 10/04/24 10/04/24 documented as of this encounter Additional Source Comments The information contained in this document represents components of the legal health record. It is not the complete legal health record.[facility]
--- OUTSIDE RECORDS SUMMARY | 2025-03-07 13:53 | XMS_ITS | Encounter Summary ---
Author Organization [facility] Address [address] [place] [address] Phone Care Team Providers Care Disability Case Manager Name Role Phone Azam Nicolas MD Primary Care Provider + [phone] Encounter Details Date Type Department Care Team (Late st Contact Info) Description 04/09/2024 Documentation Only [facility] [address] [place] [phone] [place] [address] [place] [phone] Social History Tobacco Use Types Packs/Day Years [...] Support [facility] [address] [place] [phone] 04/04/2025 2:15 PM EST Clinical Support [facility] [place] [address] [place] [address] Galina Hernandez, DELINQUENT TAX COLLECTION ASSISTANT-C [address] [place] [address] documented as of this encounter Visit Diagnoses Not on filedocumented in this encounter Care Teams Disability Case Manager Relationship Specialty Start Date End Date Azam Nicolas MD [address] [place] [address], [address] [place] [address] PCP - General Internal Medicine 10/29/21 documented as of this encounter
--- OUTSIDE RECORDS SUMMARY | 2025-03-07 13:53 | XMS_ITS | Encounter Summary ---
Author Organization [facility] Address [address] [place] [address] Phone Care Team Providers Care Electric Organ Checker Name Role Phone Azam Nicolas MD Primary Care Provider + [phone] Encounter Details Date Type Department Care Team (Late st Contact Info) Description 04/09/2024 Documentation Only [facility] [address] [place] [phone] [place] [address] [place] [phone] Social History Tobacco Use Types Packs/Day [...] Support [facility] [address] [place] [phone] 04/04/2025 2:15 PM EST Clinical Support [facility] [place] [address] [place] [address] Galina Hernandez, MOTOR EQUIPMENT LIEUTENANT-C [address] [place] [phone] documented as of this encounter Visit Diagnoses Not on filedocumented in this encounter Care Teams Electric Organ Checker Relationship Specialty Start Date End Date Aazm Nicolas MD [address] [place] [address], [address] [place] [address] PCP - General Internal Medicine 10/29/21 documented as of this encounter
--- OUTSIDE RECORDS SUMMARY | 2025-03-07 13:53 | XMS_ITS | Encounter Summary ---
Author Organization [facility] Address [address] [place] [address] Phone Care Team Providers Care Pull Up Hand Name Role Phone Azam Nicolas MD Primary Care Provider + [phone] Reason for Visit * Reason Comments Med Refill Encounter Details Date Type Department Care Team (Late st Contact Info) Description 03/06/2025 Refill [facility] [address] [place] [address] Naif Blanco MD [address] [place] [address] [place] [phone] Social History Tobacco Use Types Packs/Day Years [...] Clinical Support [facility] [address] [place] [address] 04/04/2025 2:15 PM EST Clinical Support [facility] [place] [address] [place] [address] Galina Hernandez, [facility] [address] [place] [address] documented as of this encounter Visit Diagnoses Not on filedocumented in this encounter Care Teams Pull Up Hand Relationship Specialty Start Date End Date Azam Nicolas MD [address] [place] [address], [address] [place] [address] PCP - General Internal Medicine 10/29/21 documented as of this encounter
--- OUTSIDE RECORDS SUMMARY | 2025-03-07 13:54 | XMS_ITS | Encounter Summary ---
Author Organization [facility], Address [address] [place] [address] Phone Care Team Providers Care Sap Basis Consultant Name Role Phone Azam Nicolas MD Primary Care Provider + [phone] Reason for Visit * Reason Comments Med Refill Encounter Details Date Type Department Care Team (Late st Contact Info) Description 04/13/2022 Refill [facility] [address] [place] [phone] Andressa Samuel PA [address] [place] [address] [place] [phone] Social History Tobacco Use Types Packs/Day Years [...] Clinical Support [facility], [address] [place] [place] [phone] 04/04/2025 2:15 PM EST Clinical Support [facility] [place] [address] [place] [address] Galina Hernandez, [facility]- [address] [place] [address] documented as of this encounter Visit Diagnoses Not on filedocumented in this encounter Care Teams Sap Basis Consultant Relationship Specialty Start Date End Date Azam Nicolas MD [address] [place] [address], [address] [place] [address] PCP - General Internal Medicine 10/29/21 documented as of this encounter
--- OUTSIDE RECORDS SUMMARY | 2025-03-07 13:54 | XMS_ITS | Patient Health Record ---
Author Organization [facility] Address [address] [place] [address] Care Team Providers Care Welding Production Supervisor Name Role Phone Alena (RETIRED) Jeff SORENSEN Primary Care Provide r Unavailable Coy Wiklins Unavailable [phone] Allergies Allergen (clinical drug ingredient) Drug/Non Drug Allergy documented on EMR Reaction Allergy Type Onset Date Status Lactose Unknown Drug Allergy Active Reason For Referral No Information Medications Medication SIG (Take, Route, Frequency, Duration) Notes Start Date End Date Status Vitamin D 1000 UNIT 1 tablet Orally Once a day Active Mycophenolic Acid 360 MG take 1 tablet b y mouth every 12 hours Oral; Duration: 30 Active Tacrolimus 1 MG 1 Oral Once a day Active Fizgcuwzep-DJPO-Hscngtus 50-325-40 MG take 1 tablet by mouth every 6 hours if needed Oral prn Active glipiZIDE 5 MG 1/2 tab Oral Once a day Active Fish Oil 1000 MG 1 capsule Orally Onc e a day Active Iron 142 (45 Fe) MG 1 tablet Orally Once a day Active Immunizations Vaccine Route Administration Date Status Comme nts Flu vaccine no Preserv 3 and > Unknown 02/28/2015 Admin istered Problems Problem Type SNOMED Code ICD Code Onset Dates Problem Status W/U Status Risk Notes Problem Screening for malignant neoplasm of colon (782054273) Encounter for screening for malignant neoplasm of colon (Z12.11) Active confirmed Problem Screening for malignant neoplasm of rectum (029818214) Encounter for screening for malignant neoplasm of rectum (Z12.12) Active confirmed Problem Preprocedural examination (886253255664458) Preprocedural examination (Z01.818) Active confirmed Plan Of Treatment Future Test Test Name Order Date COLONOSCOPY 08/17/2015 Insurance Providers Payer Name Payer Address Payer Phone Subscriber Number Group Number Insured Name Patient Relationship to Insured Coverage Start Date Coverage End Date MEDICARE OF [place] [address] [place] [address] [id number] AMBER DEAN Self - patient is the insured [facility] [address] [place] [phone] [id number] AMBER DEAN Self - patient is the insured Medical (General) History Medical History History ICD Code Denies PA,CVA,Lung disease,renal disease Renal failure--required a renal transpla nt in 06/2009--the donor was her son NIDDM Urinary bladder prolapse screening colonoscopy in Apr was negative other than a hyperplastic polyp, mild sigmoid diverticulosis, and small internal hemorrhoids Surgical History Surgery Date(Month/Year) Kidney transplant at [facility] 06/2009
--- OUTSIDE RECORDS SUMMARY | 2025-03-07 13:54 | XMS_ITS | Encounter Summary ---
Author Organization [facility] Address [address] [place] [address] Phone Care Team Providers Care Business And Financial Counsel Name Role Phone Azam Nicolas MD Primary Care Provider + [phone] Reason for Visit * Reason Onset Date Comments Med Refill 04/13/2022 Encounter Details Date Type Department Care Team (Late st Contact Info) Description 04/13/2022 Refill [facility] [address] [place] [address] Naif Blanco MD [address] [place] [address] [place] [id number] Social History Tobacco Use Types Packs/Day Years [...] Clinical Support [facility] [address] [place] [address] 04/04/2025 2:15 PM EST Clinical Support [facility] [address] [place] [address] Galina Hernandez FNP-[place] [address] [place] [address] documented as of this encounter Visit Diagnoses Not on filedocumented in this encounter Care Teams Business And Financial Counsel Relationship Specialty Start Date End Date Azam Nicolas MD [address] [place] [address], [address] [place] [address] PCP - General Internal Medicine 10/29/21 documented as of this encounter
--- OUTSIDE RECORDS SUMMARY | 2025-03-07 13:54 | XMS_ITS | Clinical Summary ---
Author Organization [facility], Address [address] [place] [address] Phone Care Team Providers Care Medical Territory Manager Name Role Phone Azam Nicolas MD Primary Care Provider Allergies Active Allergy Reactions Criticality Noted Date Comments Azithromycin 05/11/2019 Cephalexin Other (see comments) 11/07/2017 Lactose Other (see comments) 11/07/2017 Metformin 11/07/2017 Sulfa Antibiotics 05/11/2019 Sulfamethoxazole-Trimethoprim 2017 Valsartan Rash Low 11/07/2017 Medications butalbital-asp irin-caffeine (FIORINAL) 50-325-40 MG capsule Take 1 capsule by mouth 1 (one) time each day Active ferrous sulfate 325 (65 Fe) MG tablet iron 65mg qd Active clindamycin (CLEOCIN) 300 MG capsule TK 2 CS PO 1 HOUR PRIOR TO APPOINTMENT 12/16/19 Active cholecalcifero l (VITAMIN D-3 SUPER STRENGTH) 50 MCG (1999 UT) tablet 1 (one) time each day Active azelastine (ASTELIN) 0.1 % nasal spray USE 2 SPRAYS IN EACH NOSTRIL TWICE DAILY DIRECTED 08/30/19 Active fexofenadine (BARRINGTON) 180 MG tablet Take 180 mg by mouth in the morning. Active Butalbital-APA P-Caffeine 50-300-40 MG capsule Take 1 capsule by mouth 2 (two) times a day if needed 09/13/19 22 Active magnesium oxide 250 MG tablet Take 2 tablets (500 mg total) by mouth in the morning and 2 tablets (500 mg total) in the evening. 02/14/20 22 Active cyclobenzaprin e (FLEXERIL) 5 MG tablet Take 1 tablet (5 mg total) by mouth 3 (three) times a day if needed for muscle spasms for up to 20 days 30 tablet 1 06/05/19 23 Active rosuvastatin (CRESTOR) 5 MG tablet TAKE 1 TABLET(5 MG) BY MOUTH EVERY MORNING 90 tablet 3 01/27/20 24 Active mycophenolate (MYFORTIC) 360 MG EC tablet TAKE 2 TABLETS BY MOUTH IN THE MORNING AND 2 TABLETS BY MOUTH IN THE EVENING 450 tablet 3 05/13/20 24 Active gabapentin (Neurontin) 100 MG capsule Take 2 capsules (200 mg total) by mouth in the morning and 2 capsules (200 mg total) in the evening. 120 capsule 11 07/27/19 25 026 Active tacrolimus (PROGRAF) 1 MG capsule Take 2 capsules (2 mg total) by mouth in the morning and 2 capsules (2 mg total) in the evening. 120 capsule 11 10/13/19 25 026 Active glipiZIDE (GLUCOTROL XL) 10 MG 24 hr tablet Take 2 tablets (20 mg total) by mouth 1 (one) time each day Do not crush, chew, or split. 180 tablet 5 01/25/20 25 026 Active Jardiance 10 MG tablet TAKE 1 TABLET BY MOUTH 1 TIME EACH DAY IN THE MORNING 90 tablet 3 03/07/20 25 Active Jardiance 10 MG tablet TAKE 1 TABLET BY MOUTH 1 TIME EACH DAY IN THE MORNING 90 tablet 3 03/08/20 24 025 Discontinued Active Problems Problem Noted Date Diagnosed Date Stage 3a chronic kidney disease 03/15/2024 Acute cystitis 04/02/2023 Hearing loss <Unspecified side> 01/23/2021 Essential hypertension 05/11/2019 Type 2 diabetes mellitus 05/11/2019 History of immunosuppressive therapy 05/10/2019 Hyperlipidemia 05/10/2019 Hypomagnesemia 05/10/2019 History of renal transplant 12/29/2018 Drug-induced diabetes mellitus 10/22/2017 Chronic kidney disease stage 2 Resolved Problems Problem Noted Date Diagnosed Date Resolved Date Chronic tension-type headache 11/09/2020 04/09/2024 Overview (11/21/2020): Uses Fioricet a few times per month Last Assessment & Plan: Headaches are well controlled, she can continue using Fioricet a few times per month. Nasal congestion 11/09/2020 04/09/2024 Overview (11/21/2020): Failed to respond to oral prednisone, intranasal corticosteroids, and antihistamines. Managed by Dr. Meadows Last Assessment & Plan: Planning to have sinus surgery later this year at [facility]. Acute diarrhea 01/11/2020 11/06/2021 Migraine 10/22/2017 04/09/2024 Seasonal allergy 10/22/2017 04/09/2024 Encounters Date Type Department Care Team Description 03/06/2025 Refill [facility] [address] [place] [phone] Naif Blanco MD 02/15/2025 Orders Only [facility] [address] [place] [phone] Priyanka Call MA Urinary tract infection, not otherwise specified (Primary Dx) 01/24/2025 3:30 PM EDT Clinical Support [facility] [address] [place] [phone] Galina Hernandez FNP-C History of renal transplant (Primary Dx); History of immunosuppressive therapy; Chronic kidney disease stage 2 01/24/2025 3:00 PM EDT Clinical Support [facility] [address] [place] [phone] Nicole Renee RPh 01/12/2025 Orders Only [facility] [address] [place] [phone] Priyanka Call MA Type 2 diabetes mellitus with diabetic chronic kidney disease (HCC) (Primary Dx); History of renal transplant; History of immunosuppressive therapy; Essential hypertension; Hypomagnesemia; Poor glycemic control; Other iron deficiency anemia; Other specified hypoparathyroidism (HCC); Other proteinuria from Last 3 Months Immunizations Immunization Administration Dates Next Due Influenza (IM) Preservative Free 01/28/2020 Influenza Split High Dose Pr eservative Free IM 01/29/2019,02/06/2018,03/01/2015 Influenza Vaccine, Quadrival ent, Adjuvanted 01/20/2021,01/28/2020 Influenza, Quadrivalent, Pre servative Free 02/06/2015 Influenza, Quadrivalent, Wit h Preservative 01/29/2019,01/29/2019,02/06/2018,02/06 Influenza, Trivalent, Adjuvanted 02/04/2017 Influenza, Unspecified 03/28/2022,01/28/2020,08/2009 [place] SARS-COV-2 07/29/2020 Moderna SARS-COV-2 03/29/2021 Pneumococcal Polysaccharide 09/28/2009 Pneumococcal, Unspecified 06/28/2014,09/28/2009 Respiratory Syncytial Virus (Rsv), Unspecified 05/06/2023 Tdap 02/06/2015,09/28/2009 Tetanus Toxoid, Unspecified 09/25/2009 Zoster 12/03/2019,07/20/2019 Family History Medical History Relation Comments Diabetes Father Relation Status Comments Father Social History Tobacco Use Types Packs/Day Years [...] Orientation Straight 03/20/2021 10 :28 AM EDT Last Filed Vital Signs Vital Sign Reading Time Taken Comments Blood Pressure 131/59 01/24/2025 3:39 PM EDT Pulse 68 11/29/2024 3:13 PM EDT Temperature - - Respiratory Rate 16 03/16/2019 12:00 PM EDT Oxygen Saturation - - Inhaled Oxygen Concentration - - Weight 42.8 kg (94 lb 6.4 oz) 11/29/2024 3:13 PM EDT Height 149.9 cm (4' 11 ) 05/26/2024 9:44 AM EST Body Mass Index 19.07 05/26/2024 9:44 AM EST Plan of Treatment Upcoming Encounters Date Type Department Care Team (Late st Contact Info) Description 04/04/2025 1:30 PM EST Clinical Support [facility], [address] [phone] 04/04/2025 2:15 PM EST Clinical Support [facility] [address] [place] [phone] Galina Hernandez, ENTERER-C [address] [place] [phone] Health Maintenance Due Date Last Done Comments Hepatitis B Vaccine (1 of 3 - Risk 3-dose series) 2008 Pneumococcal Vaccine: 50+ Ye ars (2 of 2 - PCV) 06/28/2015 06/28/2014, 09/28/2009, 09/28/2009 Diabetes: Pedal Pulse Checked 05/10/2019 Diabetes: Sensory Foot Exam 05/10/2019 Diabetes: Visual Foot Exam 05/10/2019 Diabetes: Ophthalmology Exam 02/15/2022 02/15/2021 Influenza Vaccine (#1) 2025 4, 03/28/2022, 01/20/2021, Additional history exists Diabetes: Hemoglobin A1C 04/20/2025 025, 07/23/2024, 04/17/2024, Additional history exists Pneumococcal Vaccine: Peds ( 0 to 5 Years) and At-Risk Patients (6 to 49 Years) Discontinued 06/28/2014, 09/28/2009, 09/28/2009 Colonoscopy (Post-Transplant Patient) Discontinued 04/11/2020 Procedures Procedure Name Priority Date/Time Associated Diagnosis Comments URINALYSIS, COMPLETE Routine 02/17/2025 8:56 AM EDT Urinary tract infection, not otherwise specified MICROSCOPIC EXAMINATION - DO NOT USE Routine 02/17/2025 8:56 AM EDT URINALYSIS, COMPLETE Routine 01/19/2025 7:59 AM EDT Type 2 diabetes mellitus with diabetic chronic kidney disease (HCC) History of renal transplant History of immunosuppressive therapy Essential hypertension Hypomagnesemia Poor glycemic control Other iron deficiency anemia Other specified hypoparathyroidism (HCC) Other proteinuria URINE ALBUMIN / CREATININE RATIO Routine 01/19/2025 7:59 AM EDT Type 2 diabetes mellitus with diabetic chronic kidney disease (HCC) History of renal transplant History of immunosuppressive therapy Essential hypertension Hypomagnesemia Poor glycemic control Other iron deficiency anemia Other specified hypoparathyroidism (HCC) Other proteinuria PTH, INTACT Routine 01/19/2025 7:59 AM EDT Type 2 diabetes mellitus with diabetic chronic kidney disease (HCC) History of renal transplant History of immunosuppressive therapy Essential hypertension Hypomagnesemia Poor glycemic control Other iron deficiency anemia Other specified hypoparathyroidism (HCC) Other proteinuria IRON PANEL (FE, TIBC, TSAT) Routine 01/19/2025 7:59 AM EDT Type 2 diabetes mellitus with diabetic chronic kidney disease (HCC) History of renal transplant History of immunosuppressive therapy Essential hypertension Hypomagnesemia Poor glycemic control Other iron deficiency anemia Other specified hypoparathyroidism (HCC) Other proteinuria FERRITIN Routine 01/19/2025 7:59 AM EDT Type 2 diabetes mellitus with diabetic chronic kidney disease (HCC) History of renal transplant History of immunosuppressive therapy Essential hypertension Hypomagnesemia Poor glycemic control Other iron deficiency anemia Other specified hypoparathyroidism (HCC) Other proteinuria CREATINE KINASE Routine 01/19/2025 7:59 AM EDT Type 2 diabetes mellitus with diabetic chronic kidney disease (HCC) History of renal transplant History of immunosuppressive therapy Essential hypertension Hypomagnesemia Poor glycemic control Other iron deficiency anemia Other specified hypoparathyroidism (HCC) Other proteinuria ALT Routine 01/19/2025 7:59 AM EDT Type 2 diabetes mellitus with diabetic chronic kidney disease (HCC) History of renal transplant History of immunosuppressive therapy Essential hypertension Hypomagnesemia Poor glycemic control Other iron deficiency anemia Other specified hypoparathyroidism (HCC) Other proteinuria AST Routine 01/19/2025 7:59 AM EDT Type 2 diabetes mellitus with diabetic chronic kidney disease (HCC) History of renal transplant History of immunosuppressive therapy Essential hypertension Hypomagnesemia Poor glycemic control Other iron deficiency anemia Other specified hypoparathyroidism (HCC) Other proteinuria HEMOGLOBIN A1C Routine 01/19/2025 7:59 AM EDT Type 2 diabetes mellitus with diabetic chronic kidney disease (HCC) History of renal transplant History of immunosuppressive therapy Essential hypertension Hypomagnesemia Poor glycemic control Other iron deficiency anemia Other specified hypoparathyroidism (HCC) Other proteinuria MAGNESIUM Routine 01/19/2025 7:59 AM EDT Type 2 diabetes mellitus with diabetic chronic kidney disease (HCC) History of renal transplant History of immunosuppressive therapy Essential hypertension Hypomagnesemia Poor glycemic control Other iron deficiency anemia Other specified hypoparathyroidism (HCC) Other proteinuria CBC AND DIFFERENTIAL Routine 01/19/2025 7:59 AM EDT Type 2 diabetes mellitus with diabetic chronic kidney disease (HCC) History of renal transplant History of immunosuppressive therapy Essential hypertension Hypomagnesemia Poor glycemic control Other iron deficiency anemia Other specified hypoparathyroidism (HCC) Other proteinuria RENAL FUNCTION PANEL Routine 01/19/2025 7:59 AM EDT Type 2 diabetes mellitus with diabetic chronic kidney disease (HCC) History of renal transplant History of immunosuppressive therapy Essential hypertension Hypomagnesemia Poor glycemic control Other iron deficiency anemia Other specified hypoparathyroidism (HCC) Other proteinuria MYCOPHENOLIC ACID AND METABO. Routine 01/19/2025 7:59 AM EDT Type 2 diabetes mellitus with diabetic chronic kidney disease (HCC) History of renal transplant History of immunosuppressive therapy Essential hypertension Hypomagnesemia Poor glycemic control Other iron deficiency anemia Other specified hypoparathyroidism (HCC) Other proteinuria TACROLIMUS, HIGHLY SENSITIVE, LC/MS/MS Routine 01/19/2025 7:59 AM EDT Type 2 diabetes mellitus with diabetic chronic kidney disease (HCC) History of renal transplant History of immunosuppressive therapy Essential hypertension Hypomagnesemia Poor glycemic control Other iron deficiency anemia Other specified hypoparathyroidism (HCC) Other proteinuria MICROSCOPIC EXAMINATION - DO NOT USE Routine 01/19/2025 7:59 AM EDT from Last 3 Months Results * (ABNORMAL) Urinalysis, Complete w/reflex to Culture (02/17/2025 8:56 AM EDT) Only the most recent of2 resultswithin the time period is included. Specific [place], Urine 1.024 1.005 - 1.030 [facility] pH Urine 6.0 5.0 - 7.5 [facility] Color, Urine Yellow Yellow [facility] Appearance Urine Clear Clear [facility] [place] WBC Esterase Urine Negative Negative [facility] Protein, Ur Trace Negative/Tra ce [facility] Glucose, Ur 3+(A) Negative [facility] Ketones, Urine Negative Negative [facility] Blood Urine Negative Negative [facility] Bilirubin Urine Negative Negative [facility] Urobilinogen Urine 0.2 0.2 - 1.0 mg/dL [facility] Nitrite, Urine Negative Negative [facility] Microscopic Examination Comment [facility] Comment:Microscopic follows if indicated. Other Microsc. Observations See below: [facility] Comment:Microscopic was giuseppe cated and was performed. URINALYSIS REFLEX Comment [facility] Comment:This specimen will n ot reflex to a Urine Culture. Urine Urine specimen obtained by clean catch procedure / Unknown 02/17/2025 8:56 AM EDT 02/17/2025 Naif Blanco MD LAB URINE ORDERABLES Final Result Performing Organization Address City/[facility]/ZIP Co de Phone Number [facility] [address] [place] [address] * Microscopic Examination (02/17/2025 8:56 AM EDT) Only the most recent of2 resultswithin the time period is included. WBC, Urine None seen 0 - 5 /hpf [facility] RBC, Urine None seen 0 - 2 /hpf [facility] Squamous Epithelial, Urine None seen 0 - 10 /hpf [facility] Casts None seen None seen /lpf [facility] Bacteria, Urine None seen None seen/Few [facility] 02/17/2025 8:56 AM EDT 02/17/2025 Naif Blanco MD LAB MICROBIOLOGY - GENERAL ORDERABLES Final Result Performing Organization Address City/[facility]/ZIP Co de Phone Number [facility] [address] [place] [address] * Tacrolimus, Highly Sensitive, LC/MS/MS (01/19/2025 7:59 AM EDT) Tacrolimus by Immunoassay 7.3 5.0 - 20.0 ng/mL [facility] Comment: Detection Limit = 0.8 ng/mL Target steady state trough concentration for Tacrolimus varies based on type of organ transplant immunosuppressive protocol and other patient specific factors. Tacrolimus trough concentrations should be interpreted in conjunction with clinical assessments of rejection and tolerability. Values obtained with different assay methods cannot be used interchangeably due to differences in assay methods and cross-reactivty with metabolites, nor should correction factors be applied. Therefore, consistent use of one assay for individual patients is recommended. Tacrolimus assay performed by [employer]. 01/19/2025 7:59 AM EDT 01/19/2025 Naif Blanco MD LAB BLOOD ORDERABLES Final Result Performing Organization Address City/[facility]/ZIP Co de Phone Number [facility] [address] [place] [address] * (ABNORMAL) Mycophenolic Acid and Metabo. (01/19/2025 7:59 AM EDT) Pathologist [facility] Mycophenolic Acid 1.5 1.0 - 3.5 ug/mL [facility] Mycophenolic Acid Glucuronide 115(H) 35 - 100 ug/mL [facility] Blood Venous blood / Unknown 01/19/2025 7:59 AM EDT 01/19/2025 Narrative [facility] - 01/24/2025 1:05 PM EDT Test(s) 722406-[id number] Acid; 460475- Mycophenolic Acid Glucuronide was developed and its performance characteristics determined by [facility]. It has not been cleared or approved by the Food and Drug Administration. Naif Blanco MD LAB BLOOD ORDERABLES Final Result Performing Organization Address City/[facility]/ZIP Co de Phone Number [facility] [place] [address] * Iron Panel (Fe, TIBC, TSAT) (01/19/2025 7:59 AM EDT) [facility] TIBC 302 250 - 450 ug/dL [facility] UIBC 212 118 - 369 ug/dL [facility] Iron 90 27 - 139 ug/dL [facility] Iron Saturation (TSat) 30 15 - 55 % [facility] Blood Venous blood / Unknown 01/19/2025 7:59 AM EDT 01/19/2025 Naif Blanco MD LAB BLOOD ORDERABLES Final Result Performing Organization Address City/[facility] Co de Phone Number [email or web address] [address] [place] [address] * (ABNORMAL) Urine Albumin / Creatinine Ratio (01/19/2025 7:59 AM EDT) Creatinine, Ur 57.4 Not Estab. mg/dL [facility] Albumin, Urine 105.9 Not Estab. ug/mL [facility] Albumin/Creatin ine Ratio 184(H) 0 - 29 mg/g creat [facility] Comment: Normal: 0 - 29 Moderately increased: 30 - 300 Severely increased: >300 Urine Urine specimen obtained by clean catch procedure / Unknown 01/19/2025 7:59 AM EDT 01/19/2025 Naif Blanco MD LAB URINE ORDERABLES Final Result Performing Organization Address City/[facility] Co de Phone Number [facility] [address] [place] [address] * CBC and Differential (01/19/2025 7:59 AM EDT) WBC 7.8 3.4 - 10.8 x10E3/uL [facility] RBC 4.88 3.77 - 5.28 x10E6/uL [facility] Hemoglobin 14.5 11.1 - 15.9 g/dL [facility] Hematocrit 44.9 34.0 - 46.6 % [facility] MCV 92 79 - 97 fL [facility] MCH 29.7 26.6 - 33.0 pg [facility] MCHC 32.3 31.5 - 35.7 g/dL [facility] RDW 12.3 11.7 - 15.4 % [facility] Platelets 281 150 - 450 x10E3/uL [facility] Neutrophils Relative 75 Not Estab. % [facility] Lymphocytes Relative 12 Not Estab. % [facility] Monocytes 10 Not Estab. % [facility] Eosinophils Relative 2 Not Estab. % [facility] Basophils Relative 1 Not Estab. % [facility] Neutrophils Absolute 5.9 1.4 - 7.0 x10E3/uL [facility] Lymphocytes Absolute 0.9 0.7 - 3.1 x10E3/uL [facility] Monocytes Absolute 0.8 0.1 - 0.9 x10E3/uL [facility] Eosinophils Absolute 0.2 0.0 - 0.4 x10E3/uL [facility] Basophils Absolute 0.1 0.0 - 0.2 x10E3/uL [facility] Immature Granulocytes 0 Not Estab. % [facility] Immature Grans (Absolute) 0.0 0.0 - 0.1 x10E3/uL [facility] Blood Venous blood / Unknown 01/19/2025 7:59 AM EDT 01/19/2025 Naif Blanco MD LAB BLOOD ORDERABLES Final Result [facility] [address] [place] [address] * ALT (01/19/2025 7:59 AM EDT) ALT (SGPT) 25 0 - 32 IU/L [facility] Blood Venous blood / Unknown 01/19/2025 7:59 AM EDT 01/19/2025 Naif Blanco MD LAB BLOOD ORDERABLES Final Result Performing Organization Address [facility]/ZIP Co de Phone Number [facility] [address] [place] [address] * AST (01/19/2025 7:59 AM EDT) AST (SGOT) 25 0 - 40 IU/L [facility] Blood Venous blood / Unknown 01/19/2025 7:59 AM EDT 01/19/2025 Naif Blanco MD LAB BLOOD ORDERABLES Final Result Performing Organization Address [facility]/ZIP Co de Phone Number [facility] [address] [place] [address] * PTH, Intact (01/19/2025 7:59 AM EDT) PTH 37 15 - 65 pg/mL [facility] Blood Venous blood / Unknown 01/19/2025 7:59 AM EDT 01/19/2025 Naif Blanco MD LAB BLOOD ORDERABLES Final Result Performing Organization Address City/[facility]/ZIP Co de Phone Number [email or web address] [address] [place] [address] * Magnesium (01/19/2025 7:59 AM EDT) Magnesium 2.1 1.6 - 2.3 mg/dL [facility] Blood Venous blood / Unknown 01/19/2025 7:59 AM EDT 01/19/2025 Naif Blanco MD LAB BLOOD ORDERABLES Final Result [facility] [address] [place] [address] * (ABNORMAL) Hemoglobin A1c (01/19/2025 7:59 AM EDT) Pathologist [facility] Hemoglobin A1C 7.3(H) 4.8 - 5.6 % [facility] Comment: Prediabetes: 5.7 - 6.4 Diabetes: >6.4 Glycemic control for adults with diabetes: <7.0 Blood Venous blood / Unknown 01/19/2025 7:59 AM EDT 01/19/2025 Naif Blanco MD LAB BLOOD ORDERABLES Final Result [facility] [address] [place] [address] * (ABNORMAL) Ferritin (01/19/2025 7:59 AM EDT) Pathologist [facility] Ferritin 508(H) 15 - 150 ng/mL [facility] Blood Venous blood / Unknown 01/19/2025 7:59 AM EDT 01/19/2025 Naif Blanco MD LAB BLOOD ORDERABLES Final Result [facility] [address] [place] [address] * CK (01/19/2025 7:59 AM EDT) Creatine Kinase (CK/CPK) 50 32 - 182 U/L [facility] Blood Venous blood / Unknown 01/19/2025 7:59 AM EDT 01/19/2025 Naif Blanco MD LAB BLOOD ORDERABLES Final Result [facility] [address] [place] [address] * (ABNORMAL) Renal Function Panel (01/19/2025 7:59 AM EDT) Pathologist [facility] Glucose 131(H) 70 - 99 mg/dL [facility] BUN 18 8 - 27 mg/dL [facility] Creatinine 0.80 0.57 - 1.00 mg/dL [facility] eGFR CKD-EPI CR 2020 76 >59 mL/min/1.7 3 [facility] BUN/Creatinine Ratio 23 12 - 28 [facility] Sodium 139 134 - 144 mmol/L [facility] Potassium 4.8 3.5 - 5.2 mmol/L [facility] Chloride 100 96 - 106 mmol/L [facility] Bicarbonate (CO2) 21 20 - 29 mmol/L [facility] Calcium 10.4(H) 8.7 - 10.3 mg/dL [facility] Comment:Verified by repeat analysis Albumin 4.8 3.8 - 4.8 g/dL [facility] Phosphorus 3.7 3.0 - 4.3 mg/dL [facility] Blood Venous blood / Unknown 01/19/2025 7:59 AM EDT 01/19/2025 Naif Blanco MD LAB BLOOD ORDERABLES Final Result [facility] [address] [place] [phone] from Last 3 Months Insurance Medicare [facility] Care Teams Medical Territory Manager Relationship Specialty Start Date End Date Azam Nicolas MD [address] [place] [address], [address] [place] [address] PCP - General Internal Medicine 10/29/21
--- OUTSIDE RECORDS SUMMARY | 2025-03-07 13:54 | XMS_ITS | Clinical Summary ---
Author Organization [facility] Address [address] [place] [id number] Phone Care Team Providers Care Rehabilitation Program Coordinator Name Role Phone Azam Nicolas MD Primary Care Provider Ti Pérez MD Unavailable [phone] Naif Blanco MD Unavailable Vanesa Soliman MD Unavailable [phone] Azam Nicolas MD Unavailable Debbie Mendes MD Unavailable Kristy Zazueta MD Unavailable Canelo Baron MD Unavailable [phone] Allergies Active Allergy Reactions Criticality Noted Date Comments Azithromycin 05/11/2019 Sulfamethoxazole-Trimethoprim 2017 Cephalexin 05/29/2016 Other reaction(s): vomiting/diarrhea Valsartan 11/07/2017 Hydrochlorothiazide 05/29/2016 Lactose 11/07/2017 Other reaction(s): GI symptoms Metformin 11/07/2017 Other 05/29/2016 Sulfa (Sulfonamide Antibiotics) 04/19 Valsartan-Hydrochlorothiazide 2021 Other reaction(s): RASH Medications tacrolimus (PROGRAF) 1 MG capsule Take 2 mg by mouth 2 (two) times a day. 2 tabs =2 mg in AM and 2 tab = 2 mg in pm Active ferrous sulfate 325 mg (65 mg tejon iron) tablet Active rosuvastatin (CRESTOR) 5 MG tablet 12/23/19 Active magnesium oxide 250 mg (150 mg elemental) Tab Take 250 mg by mouth 2 (two) times a day. Active glipiZIDE (GLUCOTROL) 5 MG 24 hr tablet Take 15 mg by mouth daily. 05/29/19 Active empagliflozin (JARDIANCE) 10 mg tablet Take 10 mg by mouth. 03/01/20 22 Active mycophenolate sodium (MYFORTIC) [address] tablet Take 720 mg by mouth 2 (two) times a day before meals. 06/09/19 23 Active clindamycin (CLEOCIN) 300 MG capsule Take 300 mg by mouth as needed (dentist). Prior to dentist 03/27/20 23 Active estradioL (ESTRACE) 0.01 % (0.1 mg/gram) vaginal creamIndicatio ns:Vaginal atrophy U 1 GRAM VAGINALLY URETHRA 2 TIMES A WK 42.5 g 2 07/06/19 25 Active gabapentin (NEURONTIN) 100 MG capsule Activ e montelukast (SINGULAIR) 10 mg tablet Take 1 tablet by mouth every morning. 12/20/19 25 Active betamethasone, augmented, (DIPROLENE) 0.05 % ointment Active butalbital-jet taminophen-caf feine (FIORICET) 50-300-40 mg per capsuleIndicat ions:Migraine TAKE 1 CAPSULE BY MOUTH TWICE DAILY NEEDED FOR HEADACHE 30 capsule 02/19/20 25 Active senna (SENOKOT) 8.6 mg tablet Take 2 tablets by mouth nightly at bedtime. 12 tablet 10/05/19 025 Discontinued(No longer taking) acetaminophen (TYLENOL) 325 mg tablet Take 3 tablets (975 mg total) by mouth every 8 (eight) hours as needed for pain (specific location in comments). 10/05/19 25 025 Discontinued aspirin 81 MG EC tablet Take 1 tablet (81 mg total) by mouth 2 (two) times a day. 56 tablet 10/05/19 025 Discontinued(No longer taking) oxyCODONE 5 MG immediate release tabletIndicati ons:Status post open reduction with internal fixation of fracture Take 1 tablet (5 mg total) by mouth every 8 (eight) hours as needed for pain (specific location in comments). Partial fill ok 10 tablet 10/20/19 025 Discontinued(No longer taking) butalbital-jet taminophen-caf feine (FIORICET) 50-300-40 mg per capsuleIndicat ions:Migraine TAKE 1 CAPSULE BY MOUTH TWICE DAILY NEEDED FOR HEADACHE 40 capsule 11/02/19 025 Discontinued(Re order) Active Problems Problem Noted Date Diagnosed Date Post herpetic neuralgia 08/17/2024 Assessment & Plan (08/17/2024 5:09 PM EDT): Throat pain is likely related to postherpetic neuralgia. She can increase her dose of gabapentin from her current dose of 100 mg in the morning and 200 mg at night and add a midday dose of 100 mg daily. Pain should gradually resolve and she can gradually taper her dose as it does. If pain fails to improve she will let me know. Hepatitis 04/04/2024 Assessment & Plan (04/07/2024 2:56 PM EST): Significant LFT abnormalities including alk phos elevation of 216, AST of 552, ALT 417. Patient is on immunosuppressive medication including tacrolimus, mycophenolate, initial concern for possible immunosuppressive toxicity however discussed case with nephrology who suspected LFT abnormalities could be secondary to significant pneumonia. Legionella likely culprit. -Right upper quadrant ultrasound negative Hepatitis panel including hep A, B, C and CMV notable for positive HAV, but negative HAV IgM (old exposure) LFTs improved from admission now stable from 04/06 - 04/07. -Holding rosuvastatin. -Repeat LFTs in a.m. Assessment & Plan (04/06/2024 4:53 PM EST): Significant LFT abnormalities including alk phos elevation of 216, AST of 552, ALT 417. Patient is on immunosuppressive medication including tacrolimus, mycophenolate, initial concern for possible immunosuppressive toxicity however discussed case with nephrology who suspected LFT abnormalities could be secondary to significant pneumonia. Legionella likely culprit. -Right upper quadrant ultrasound negative Hepatitis panel including hep A, B, C and CMV notable for positive HAV, but negative HAV IgM (old exposure) LFTs improving Hold rosuvastatin at this time Assessment & Plan (04/05/2024 1:35 PM EST): Significant LFT abnormalities including alk phos elevation of 216, AST of 552, ALT 417. Patient is on immunosuppressive medication including tacrolimus, mycophenolate, initial concern for possible immunosuppressive toxicity however discussed case with nephrology who suspected LFT abnormalities could be secondary to significant pneumonia. Patient denies any abdominal pain, has a benign abdominal exam and LFT's are downtrending today -Right upper quadrant ultrasound negative Hepatitis panel including hep A, B, C and CMV notable for positive HAV, but negative HAV IgM (old exposure) Trend LFTs Hold rosuvastatin at this time Assessment & Plan (04/04/2024 4:05 PM EST): Significant LFT abnormalities including alk phos elevation of 216, AST of 552, ALT 417. Patient is on immunosuppressive medication including tacrolimus, mycophenolate, initial concern for possible immunosuppressive toxicity however discussed case with nephrology who suspected LFT abnormalities could be secondary to significant pneumonia. Patient however denies any abdominal pain, has a benign abdominal exam. -Right upper quadrant ultrasound completed, official read pending Plan: Strep/Legionella testing for pneumonia as above pending Check hepatitis panel including hep A, B, C and CMV Repeat LFTs in the a.m. Hold rosuvastatin at this time Normocytic anemia 04/04/2024 Assessment & Plan (04/07/2024 2:56 PM EST): Unclear cause of patient's anemia, hemoglobin currently 11.3, platelet count 254, MCV and MCH WNL prior values normal on 03/11/2024 according to outpatient records. -Given no thrombocytopenia at this time, LFTs did not reveal significant bilirubinemia, unclear if this is hemolytic presentation versus secondary to pneumonia and infectious state. -Patient does have risk factors for possible hemolytic anemia given immunocompromise status and use of tacrolimus -Most likely related to acute illness. CBC stable Iron normal, ferritin elevated in setting of acute infection Labs difficult to interpret in acute illness Doubt hemolysis but could recheck labs in 2 weeks to re-eval Assessment & Plan (04/06/2024 4:53 PM EST): Unclear cause of patient's anemia, hemoglobin currently 11.3, platelet count 254, MCV and MCH WNL prior values normal on 03/11/2024 according to outpatient records. -Given no thrombocytopenia at this time, LFTs did not reveal significant bilirubinemia, unclear if this is hemolytic presentation versus secondary to pneumonia and infectious state. -Patient does have risk factors for possible hemolytic anemia given immunocompromise status and use of tacrolimus -Most likely related to acute illness CBC stable Iron normal, ferritin elevated in setting of acute infection Labs difficult to interpret in acute illness Doubt hemolysis but could recheck labs in 2 weeks to re-eval Assessment & Plan (04/05/2024 1:35 PM EST): Unclear cause of patient's anemia, hemoglobin currently 11.3, platelet count 254, MCV and MCH WNL prior values normal on 03/11/2024 according to outpatient records. -Given no thrombocytopenia at this time, LFTs did not reveal significant bilirubinemia, unclear if this is hemolytic presentation versus secondary to pneumonia and infectious state. -Patient does have risk factors for possible hemolytic anemia given immunocompromise status and use of tacrolimus. Plan: Continue treatment for underlying condition of infection Continue trending CBC with differential Check LDH, haptoglobin, reticulocyte count Monitor for episodes of bleeding. Check iron/ferritin Assessment & Plan (04/04/2024 4:38 PM EST): Unclear cause of patient's anemia, hemoglobin currently 11.3, platelet count 254, MCV and MCH WNL prior values normal on 03/11/2024 according to outpatient records. -Given no thrombocytopenia at this time, LFTs did not reveal significant bilirubinemia, unclear if this is hemolytic presentation versus secondary to pneumonia and infectious state. -Patient does have risk factors for possible hemolytic anemia given immunocompromise status and use of tacrolimus. Plan: Continue treatment for underlying condition of infection Continue trending CBC with differential Check LDH, haptoglobin, reticulocyte count Monitor for episodes of bleeding. Check iron/ferritin Nocturnal leg cramps 02/18/2023 Assessment & Plan (02/18/2023 12:45 PM EDT): Likely due to exercising less. Encouraged her to start walking or cycling more regularly again. I showed her some stretching exercises that may help as well. Esophagitis, acute 08/13/2022 Assessment & Plan (08/13/2022 10:21 AM EDT): Likely has some acid reflux and has developed some esophagitis. I will treat her empirically with a PPI. If she is not feeling better and symptoms have resolved after treatment, she will follow-up with her enterprise resource planning consultant Dr. Pérez Diabetic polyneuropathy asso ciated with type 2 diabetes mellitus 08/13/2022 Assessment & Plan (08/17/2024 5:10 PM EDT): Doing well, continue daily foot exams. Assessment & Plan (08/13/2022 10:23 AM EDT): Mild sensory neuropathy, continue foot care with podiatry including diabetic shoes. Sciatica of left side 03/27/2022 Assessment & Plan (03/27/2022 9:14 AM EST): Continue walking, avoid activities aggravate the pain. Home exercise handout was given and were reviewed. If not better in a week or 2 I can refer her to physical therapy Trigger middle finger of right hand 03/27/2022 Assessment & Plan (03/27/2022 9:14 AM EST): Sent to OT for new splint Uterine prolapse 03/15/2022 Assessment & Plan (12/28/2024 10:10 AM EDT): Overall, the pessary is working well for her and she would like to continue with it which I think is very reasonable. I encouraged her to continue to use the Estrace cream to help vaginal healing and prevent erosions. Assessment & Plan (10/01/2024 11:10 AM EDT): The cube pessary was replaced without difficulty. I recommended a follow-up exam in 3 months. I explained that the most likely source of the postmenopausal bleeding are the abrasions caused by the cube pessary. Assessment & Plan (07/06/2024 1:14 PM EST): She notes that her symptoms are vastly improved when she has the pessary in. I explained that most the time we do recommend removing and leaving the pessary out when an excoriation is noted. However, she is traveling to [place] for the next 2 weeks and asked to have it replaced which I thought was reasonable as these friable areas are fairly superficial. Assessment & Plan (10/10/2023 10:08 AM EDT): The cube pessary is working very well for her and she would like to continue with it. She will continue to follow with Dr. Mendes. Vaginal atrophy 03/15/2022 Assessment & Plan (07/06/2024 1:14 PM EST): I strongly suspect that the bleeding she is having is from the friability of the anterior cervical lip. Therefore, I explained that she could continue to use the Estrace cream as my suspicion for endometrial with all she is quite low. It was renewed for her. Atrophic vaginitis 10/29/2021 Assessment & Plan (10/29/2021 8:27 AM EDT): Since she had a little bleeding after her last pessary change, she should have a [employer] exam and she has an upcoming appointment. Continue estrogen topically. History of adenomatous polyp of colon 04/30/2021 Assessment & Plan (04/30/2021 9:04 AM EST): Screening is up-to-date Chronic tension-type headache, not intractable 0 11/09/2020 Overview (11/09/2020): Uses Fioricet a few times per month Assessment & Plan (02/18/2025 12:44 PM EDT): She had a bit of a flare of her headaches but now she is back to her baseline. Reminded to use Fioricet sparingly. Assessment & Plan (12/11/2023 3:08 PM EDT): Doing well with occasional use of Fioricet, continue the same. Assessment & Plan (02/18/2023 12:44 PM EDT): Headaches may be due to sinus disease. I recommend trying more fluticasone, increasing the dose to twice daily. If this is helpful she can continue this until the colder weather comes and see if she can cut back to her previous dose. I provided her the potential toxicity of Fioricet associated with her renal transplant she must keep this to a minimum. Assessment & Plan (03/27/2022 9:15 AM EST): Headaches are well controlled after a brief flare around her COVID vaccine. Continue current treatment. Assessment & Plan (04/30/2021 9:04 AM EST): Well-controlled, continue current medication Assessment & Plan (11/09/2020 8:55 AM EDT): Headaches are well controlled, she can continue using Fioricet a few times per month. 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 renal transplant in May 2009. Assessment & Plan (02/18/2025 12:40 PM EDT): Renal function is stable and clinically she is doing well. Continue current medication and follow-up as planned with nephrology. Assessment & Plan (10/03/2024 4:24 PM EDT): On immunosuppressive therapy which we will continue Tacrolimus and mycophenolate - confirmed dose conversion - her may bring her myfortic tomorrow Nephrology consulted Assessment & Plan (10/02/2024 10:07 PM EDT): On immunosuppressive therapy which we will continue Tacrolimus and mycophenolate Stabel renal function Renally adjust all meds. Assessment & Plan (08/17/2024 5:09 PM EDT): Doing well, continue current medication and follow-up as planned with nephrology Assessment & Plan (04/08/2024 8:45 AM EST): Stable renal function creatinine at baseline. Unclear timing of tacrolimus level sent latest level elevated, dose has been reduced to 2 mg twice a day -Please make sure tacrolimus levels are sent at 6 AM before a.m. dose. -Continue with outpatient dose mycophenolate 720 mg twice daily. Assessment & Plan (04/07/2024 2:56 PM EST): -On chronic tacrolimus 3 g in the a.m., 2 g in the afternoon, on mycophenolate DR 360 mg daily -Renal transplant occurred on June 2009, follows with [facility], transplant performed at [facility] -Renal function remains normal -Spoke with patient's on-call lien searcher Dr. Benoit who recommended holding mycophenolate given septic status, and continue tacrolimus at this time, with close nephrology follow-up as an inpatient Continue tacrolimus; level was low yesterday morning but we think she missed a dose on 04/04 Today's tacro level still pending, adjust dose tomorrow if appropriate but could just monitor daily as expect it to be therapeutic again within a day or two Held mycophenolate temporarily but renal would like to resume; nephrology notes dose of mycophenolate is 720 mg twice daily. This preparation is not on formulary and cannot be substituted. Will have pt bring in home med. Assessment & Plan (04/07/2024 5:37 AM EST): Stable renal function creatinine at baseline. Levels a bit lower than target on 04/05 will await levels today, for now continue tacrolimus 3 mg in the morning 2 mg in the evening resume Resume outpatient dose mycophenolate 720 mg twice daily. Assessment & Plan (04/06/2024 4:53 PM EST): -On chronic tacrolimus 3 g in the a.m., 2 g in the afternoon, on mycophenolate DR 360 mg daily -Renal transplant occurred on June 2009, follows with [facility], transplant performed at [facility] -Renal function remains normal -Spoke with patient's on-call lien searcher Dr. Benoit who recommended holding mycophenolate given septic status, and continue tacrolimus at this time, with close nephrology follow-up as an inpatient Continue tacrolimus; level was low yesterday morning but we think she missed a dose on 04/04 Today's tacro level still pending, adjust dose tomorrow if appropriate but could just monitor daily as expect it to be therapeutic again within a day or two Held mycophenolate temporarily but renal would like to resume; need to confirm dose (360 vs 720mg) and resume 04/07 Nephrology consulted recs appreciated Assessment & Plan (04/06/2024 8:35 AM EST): Stable renal function creatinine at baseline. Tacrolimus level stable at 6.4 on 04/04 Continue tacrolimus 3 mg in the morning 2 mg in the evening resume mycophenolate 720 mg twice daily. Assessment & Plan (04/05/2024 1:35 PM EST): -On chronic tacrolimus 3 g in the a.m., 2 g in the afternoon, on mycophenolate DR 360 mg daily -Renal transplant occurred on June 2009, follows with [facility], transplant performed at [facility] -Renal function remains normal -Spoke with patient's on-call lien searcher Dr. Benoit who recommended holding mycophenolate given septic status, and continue tacrolimus at this time, with close nephrology follow-up as an inpatient Continue tacrolimus Holding mycophenolate Nephrology consulted recs appreciated Assessment & Plan (04/04/2024 4:05 PM EST): -On chronic tacrolimus 3 g in the a.m., 2 g in the afternoon, on mycophenolate DR 360 mg daily -Renal transplant occurred on June 2009, follows with [facility], transplant performed at [facility] -Renal function appears to be WNL -Spoke with patient's on-call lien searcher Dr. Benoit who recommended holding mycophenolate given septic status, and continue tacrolimus at this time, with close nephrology follow-up as an inpatient Plan: Continue tacrolimus Hold mycophenolate Nephrology consulted recs appreciated Assessment & Plan (12/11/2023 3:07 PM EDT): Transplant seems to be functioning normally, continue current medication and follow-up as planned with nephrology Assessment & Plan (04/28/2023 2:18 PM EST): Doing well, continue current treatment and follow-up as planned with nephrology. Asked her to ask her lien searcher if she can get the RSV vaccine because she is under the impression it is contraindicated due to her immunosuppression. Assessment & Plan (02/18/2023 12:43 PM EDT): Doing well, continue current treatment and follow-up as planned with nephrology. Assessment & Plan (10/29/2021 8:25 AM EDT): She is doing very well. Continue current management with nephrology. Assessment & Plan (04/30/2021 9:01 AM EST): Clinically she is doing very well. Continue current medication and follow-up as scheduled with renal Mixed hyperlipidemia 11/08/2019 Overview (11/08/2019): Patient's lipid panel 09/05 showed a total cholesterol of 153 mg/dL, LDL cholesterol of 49 mg/dL, and HDL cholesterol of 76 mg/dL which is well controlled. She is to continue on rosuvastatin 5 mg daily. Stable. Tolerates medication well. Essential hypertension 11/08/2019 Assessment & Plan (02/18/2025 12:45 PM EDT): Blood pressure is well-controlled, continue current medication. Assessment & Plan (08/17/2024 5:06 PM EDT): Well-controlled, continue current medication Assessment & Plan (12/11/2023 3:07 PM EDT): Well-controlled, continue current medication. Assessment & Plan (04/28/2023 2:17 PM EST): Well-controlled, continue current medication. Assessment & Plan (02/18/2023 12:43 PM EDT): Well-controlled, continue current medication. Assessment & Plan (08/13/2022 10:21 AM EDT): Blood pressure at home is doing well. Continue current medication Assessment & Plan (10/29/2021 8:25 AM EDT): Blood pressure today is little bit high but generally is been running well. Continue current medication Assessment & Plan (04/30/2021 9:01 AM EST): Well-controlled, continue low-sodium diet Primary insomnia 11/08/2019 Overview (11/08/2019): Uses 2.5mg THC edible PRN which works well for her. History of immunosuppressive therapy 05/10/2019 Stage 2 chronic kidney disease 10/22/2017 Assessment & Plan (11/09/2020 8:54 AM EDT): Clinically she is doing well. Continue current management through nephrology. Seasonal allergies 10/22/2017 Type 2 diabetes mellitus wit h stage 2 chronic kidney disease, without long-term current use of insulin Overview (02/18/2023): Managed by nephrology Assessment & Plan (02/18/2025 12:40 PM EDT): Blood sugar control got a little bit worse, likely because she was less active after her hip fracture. She doing well with her diet. She will continue current medication and follow-up with nephrology to have her hemoglobin A1c rechecked. She is reminded to get a COVID-19 vaccine at the pharmacy. Assessment & Plan (10/03/2024 4:24 PM EDT): DM -hold glipizide and Jardiance Blood sugars are at goal may need to adjust insulin Assessment & Plan (10/02/2024 10:07 PM EDT): DM Hold oral meds Start SSI only as will be NPO tomorrow POCT's With meals and HS Assessment & Plan (12/11/2023 3:08 PM EDT): Clinically doing well, hemoglobin A1c result is pending from labs done earlier this week. Being managed by nephrology and she will follow-up as planned with Dr. Blanco next week. Encouraged to check blood sugar more often especially if hemoglobin A1c is over 7.5. Assessment & Plan (02/18/2023 12:43 PM EDT): Well-controlled, continue current treatment. Assessment & Plan (08/13/2022 10:21 AM EDT): Well-controlled, continue current medication Assessment & Plan (10/29/2021 8:26 AM EDT): From her description, her blood sugars well controlled. I will get her labs from nephrology to review. Its not clear if she had a lipid panel and I gave her a requisition because she has not had one done in the past year. She will at this time with her lien searcher. Assessment & Plan (04/30/2021 9:03 AM EST): Clinically she is doing well. Asked her to have a copy of her labs sent to me every few months from nephrology. Assessment & Plan (11/09/2020 8:54 AM EDT): Diabetes well controlled. She having occasional hypoglycemia if she skips a meal but she is doing better in terms of trying to avoid this. Continue current medication. Labs are followed by nephrology. Resolved Problems Problem Noted Date Diagnosed Date Resolved Date Hip fracture 10/02/2024 02/18/2025 Assessment & Plan (10/03/2024 4:24 PM EDT): 10/03 percutaneous fixation femoral neck fracture Dr. Arevalo For now lovenox dvt prophylaxis may use aspirin at discharge PT Pain control acetaminophen oxycodone has IV dilaudid is needed Assessment & Plan (10/02/2024 10:07 PM EDT): NPO after midnight in anticipation of OR in the AM. IVF's at 75/hr T&S, INR ordered Postoperative anticoagulation will need to be ordered, SCD's for now. Counseled that getting moving postoperatively is hugely important toward improved outcome and that all comers outcome for hip fx at 1 year are of considerable risk for and disability. Preoperative Risk Assessment: 1. Active Cardiac Conditions requiring stabilization before surgery?: No 2. Pre-op risk of major cardiac event (MACE): - REDD: 0.8 %, 3. Estimated functional capacity (METs): Can do heavy work around the house such as scrubbing floors or lifting or moving heavy furniture (4 - 10 METs) Patient is planned for ORIF, the risk of this orthopedic procedure is low Based on the above risk assessment, patient has low risk and can proceed with surgery. - Medications: - Beta Blockers: she is not on standing beta sachin, no indication to start pre-op. - Hold DM meds - Reduce BB if SBP<115 - JET-I: none. - Diuretics: none - DM meds: Insulin regimen as below - Steroids: none - Continue all other home meds. EKG pending Tick bite of left thigh 10/02/2024 100 07/2024 Assessment & Plan (10/03/2024 4:24 PM EDT): Tick removed on Friday, not known duration possibly 48 hrs. Will prophylax given her immunocompromised status and upcoming surgery both. Doxy 200mg x1 Assessment & Plan (10/02/2024 10:07 PM EDT): Tick removed on Friday, not known duration possibly 48 hrs. Will prophylax given her immunocompromised status and upcoming surgery both. Doxy 200mg x1 Left upper lobe pneumonia 04/04/2024 Assessment & Plan (04/07/2024 2:56 PM EST): Left upper lobe consolidation consistent with likely pneumonia along with patient's presentation of cough, elevated procalc 1.86 and leukocytosis -consolidation is thick with recommendations a repeat radiograph in 6 to 8 weeks to ensure resolution -legionella positive -tolerating CTX and azithro. Received 3 days of ceftriaxone as she was immunosuppressed 04/07 she remains afebrile. she continues to improve with SpO2 of 94% on room air. -DC ceftriaxone - Continue azithromycin for at least 14 days azithro -minimize immunosuppression as much as safely possible short term Assessment & Plan (04/06/2024 4:53 PM EST): Left upper lobe consolidation consistent with likely pneumonia along with patient's presentation of cough, elevated procalc 1.86 and leukocytosis -consolidation is thick with recommendations a repeat radiograph in 6 to 8 weeks to ensure resolution -legionella positive -tolerating CTX and azithro, will not narrow since she is immunosuppressed but can consider stopping CTS after 3 days if she continues to improve -will need at least 14 days azithro -minimize immunosuppression as much as safely possible short term Assessment & Plan (04/05/2024 1:35 PM EST): Left upper lobe consolidation consistent with likely pneumonia along with patient's presentation of cough, elevated procalc 1.86 and leukocytosis -consolidation is thick with recommendations a repeat radiograph in 6 to 8 weeks to ensure resolution -cultures pending but legionella positive -tolerating CTX and azithro, will not narrow today but wait for remaining cultures since she is immunosuppressed -will need at least 14 days azithro -minimize immunosuppression as much as safely possible short term Assessment & Plan (04/04/2024 4:05 PM EST): Left upper lobe consolidation consistent with likely pneumonia along with patient's presentation of cough, consolidation is thick with recommendations a repeat radiograph in 6 to 8 weeks to ensure resolution -Pro-Reynaldo elevated 1.86, significant leukocytosis previously of 19, afebrile on presentation COVID-19 testing negative, not on supplemental O2 Plan: Blood cultures ordered and pending MRSA nares ordered and pending Respiratory culture, strep/Legionella antigen testing pending Start coverage for community-acquired pneumonia including ceftriaxone azithromycin (patient has multiple drug allergies however these are all intolerances to antibiotics, patient does have a true rash possibly to valsartan) Acute metabolic encephalopat hy due to hypoglycemia 04/04/2024 08/17/2024 Assessment & Plan (04/07/2024 2:56 PM EST): Resolved. Patient had intermittent episodes of difficulty with speech, concern for altered mental status and possible stroke however was found to be significantly hypoglycemic, blood sugar was recorded to be 53 in the field, had an episode of blood sugar 45 within the ER and symptomatic with tremors as well as difficulty with speech. -CTA of the head and neck was negative -neurology was consulted. Patient did receive full dose aspirin however given complete resolution of symptoms with improvement of blood sugar, without any neurological deficits, MRI was not recommended or pursued. Assessment & Plan (04/06/2024 4:53 PM EST): Patient had intermittent episodes of difficulty with speech, concern for altered mental status and possible stroke however was found to be significantly hypoglycemic, blood sugar was recorded to be 53 in the field, had an episode of blood sugar 45 within the ER and symptomatic with tremors as well as difficulty with speech. -CTA of the head and neck was negative -neurology was consulted. Patient did receive full dose aspirin however given complete resolution of symptoms with improvement of blood sugar, without any neurological deficits, MRI was not recommended or pursued. -resolved Assessment & Plan (04/05/2024 1:35 PM EST): Patient had intermittent episodes of difficulty with speech, concern for altered mental status and possible stroke however was found to be significantly hypoglycemic, blood sugar was recorded to be 53 in the field, had an episode of blood sugar 45 within the ER and symptomatic with tremors as well as difficulty with speech. -CTA of the head and neck was negative -neurology was consulted. Patient did receive full dose aspirin however given complete resolution of symptoms with improvement of blood sugar, without any neurological deficits, MRI was not recommended or pursued. -Continue treatment for metabolic derangements and infection Assessment & Plan (04/04/2024 4:05 PM EST): Patient had intermittent episodes of difficulty with speech, concern for altered mental status and possible stroke however was found to be significantly hypoglycemic, blood sugar was recorded to be 53 in the field, had an episode of blood sugar 45 within the ER and symptomatic with tremors as well as difficulty with speech. Initially patient presented with concern for stroke or given aphasia, CTA of the head and neck was performed and neurology was consulted. Patient did receive full dose aspirin however her presentation is likely consistent with episodic hypoglycemia as well as further cause of metabolic encephalopathy including hyponatremia and pneumonia presentation -Given complete resolution of symptoms with improvement of blood sugar, without any neurological deficits did not feel the need for a MRI of the brain to be performed at this time -Awaiting official recommendations from teleneurology at this time Plan: Continue close hemodynamic monitoring Telemetry monitoring Neurochecks every 4 hours Continue treatment for metabolic derangements and infection Hyponatremia 04/04/2024 08/17/2024 Assessment & Plan (04/08/2024 8:45 AM EST): As a result of volume depleted state early on, 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 Fortunately improving sodium levels continue with fluid restriction to 1200 mL daily. Assessment & Plan (04/07/2024 2:56 PM EST): Serum osmolality 264, urine sodium less than 20 consistent with hypovolemic hypotonic hyponatremia on admission, but prob has some component of SIADH iso legionella pna. IVF hydration administered in the ER Fluid restrict to 1500 cc Sodium levels now within normal limits for the past 2 days today is 133. - Repeat sodium level intermittently. 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 Sodium levels stable at 129-130 Suggest to tighten fluid restriction to 1200 mL daily. Assessment & Plan (04/06/2024 4:53 PM EST): Serum osmolality 264, urine sodium less than 20 consistent with hypovolemic hypotonic hyponatremia on admission, but prob has some component of SIADH iso legionella pna. IVF hydration administered in the ER Fluid restrict to 1500 cc Monitor labs Assessment & Plan (04/06/2024 8:35 AM EST): As a result of volume depleted state early on, 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 Continue fluid restriction 1500 mL daily. Assessment & Plan (04/05/2024 1:35 PM EST): Serum osmolality 264, urine sodium less than 20 consistent with hypovolemic hypotonic hyponatremia IVF hydration administered in the ER Encourage p.o. hydration Monitor labs Assessment & Plan (04/04/2024 4:05 PM EST): Serum osmolality 264, urine sodium less than 20 consistent with hypovolemic hypotonic hyponatremia Plan: IVF hydration administered in the ER Recheck BMP Encourage p.o. hydration Hypoglycemia 04/04/2024 08/17/2024 Assessment & Plan (04/07/2024 2:56 PM EST): Suspect iatrogenic hypoglycemia given patient's persistent use of glipizide and Jardiance as prescribed for type 2 diabetes -Given patient's presentation of pneumonia, hyponatremia and likely dehydration suspect medication induced persistent hypoglycemia Resolved Encourage oral intake Holding Jardiance and glipizide at this time Assessment & Plan (04/06/2024 4:53 PM EST): Suspect iatrogenic hypoglycemia given patient's persistent use of glipizide and Jardiance as prescribed for type 2 diabetes -Given patient's presentation of pneumonia, hyponatremia and likely dehydration suspect medication induced persistent hypoglycemia Resolved Encourage oral intake Hold Jardiance and glipizide at this time Assessment & Plan (04/05/2024 1:35 PM EST): Suspect iatrogenic hypoglycemia given patient's persistent use of glipizide and Jardiance as prescribed for type 2 diabetes -Given patient's presentation of pneumonia, hyponatremia and likely dehydration suspect medication induced persistent hypoglycemia Plan: POCT glucose checks every hour x 5 Encourage oral intake As needed D10 for severe hypoglycemia Hold Jardiance and glipizide at this time Assessment & Plan (04/04/2024 4:05 PM EST): Suspect iatrogenic hypoglycemia given patient's persistent use of glipizide and Jardiance as prescribed for type 2 diabetes -Given patient's presentation of pneumonia, hyponatremia and likely dehydration suspect medication induced persistent hypoglycemia Plan: POCT glucose checks every hour x 5 Encourage oral intake As needed D10 for severe hypoglycemia Hold Jardiance and glipizide at this time Asymptomatic COVID-19 virus infection 11/14/2022 02/18/2023 Assessment & Plan (11/14/2022 4:53 PM EDT): The patient is asymptomatic and has no recent exposure. I wonder if she did not contract infection after flying back from [place] a few weeks ago and just has a persistently positive test. As long she stays asymptomatic, I would not recommend any treatment. If she has worsening symptoms she will let us know. LLQ discomfort 08/13/2022 08/17/2024 Assessment & Plan (08/13/2022 10:22 AM EDT): Symptoms are quite mild, no clear etiology. She could have a mild case of irritable bowel. If her symptoms do not resolve after a month or 2 asked her to contact me and I will check an ultrasound Chronic nasal congestion 11/09/202005/2024 Overview (12/11/2023): Better with [place] pot couple times a day, followed by ENT. Assessment & Plan (12/11/2023 3:07 PM EDT): Symptoms are mild to moderate but she is doing reasonably well using her Katerina pot, continue the same. Assessment & Plan (10/29/2021 8:26 AM EDT): Better with allergy meds, continue the same Assessment & Plan (04/30/2021 9:02 AM EST): Doing somewhat better with intranasal corticosteroid. Follow-up as scheduled with ENT Assessment & Plan (11/09/2020 8:56 AM EDT): Planning to have sinus surgery later this year at [facility]. Migraine without aura and wi thout status migrainosus, not intractable 11/08/2019 11/09/2020 Chronic kidney disease due to hypertension 05/10/2019 10/29/2021 Hypomagnesemia 05/10/2019 08/17/2024 Drug-induced diabetes mellitus 10/22/2017 08/13/2022 Migraine 10/22/2017 11/09/2020 Encounters Date Type Department Care Team Description 02/18/2025 10:45 AM EDT Office Visit [facility] [address] [place] [address] Azam Nicolas MD Type 2 diabetes mellitus with stage 2 chronic kidney disease, without long-term current use of insulin (Primary Dx); Essential hypertension; History of renal transplant; Chronic tension-type headache, not intractable; Migraine 01/19/2025 1:31 PM EDT - 01/19/2025 11:59 PM EDT Hospital Encounter [address] [address] Coy Arevalo MD Discharge Disposition: Home or Self Care 01/19/2025 1:30 PM EDT Office Visit [facility] [address] [place] [id number] Coy Arevalo MD Status post open reduction with internal fixation of fracture (Primary Dx); Closed fracture of left hip with routine healing, subsequent encounter 01/14/2025 9:30 AM EDT Office Visit [address] [address] Denisse Henderson PA-C Baran, [place] Anna, PT Left hip pain (Primary Dx) 01/12/2025 10:30 AM EDT Office Visit [address] [address] Denisse Henderson PA-C Baran, [place] Anna, PT Left hip pain (Primary Dx) 01/05/2025 9:00 AM EDT Office Visit [address] [address] Denisse Henderson PA-C Baran, [place] Anna, PT Left hip pain (Primary Dx) 01/03/2025 9:00 AM EDT Office Visit [address] [address] Denisse Henderson PA-C Baran, [place] Anna, PT Left hip pain (Primary Dx) 12/30/2024 8:30 AM EDT Office Visit [address] [address] Denisse Henderson PA-C Baran, [place] Anna, PT Left hip pain (Primary Dx) 12/28/2024 9:00 AM EDT Office Visit [facility] [address] [place] [phone] Canelo Baron MD Uterine prolapse (Primary Dx); Postmenopausal bleeding 12/27/2024 9:45 AM EDT Office Visit [address] [address] Denisse Henderson PA-C Baran, [place] Anna, PT Left hip pain (Primary Dx) 12/24/2024 8:45 AM EDT Office Visit [address] [address] Denisse Henderson PA-C Baran, [place] Anna, PT Left hip pain (Primary Dx) 12/22/2024 1:45 PM EDT Office Visit [address] [address] Denisse Henderson PA-C Baran, [place] Anna, PT Left hip pain (Primary Dx) 12/16/2024 11:30 AM EDT Office Visit [address] [address] Denisse Henderson PA-C Baran, [place] Anna, PT Left hip pain (Primary Dx) 12/09/2024 9:15 AM EDT Office Visit [address] [address] [place], SAPNA Kaba [place] Anna, PT Left hip pain (Primary Dx) 12/06/2024 9:45 AM EDT Office Visit [facility] [address] [place] [address] Denisse Henderson PA-C Baran, [place] Anna, PT Left hip pain (Primary Dx) from Last 3 Months Immunizations Immunization Administration Dates Next Due COVID-19 (Pre-03/10) [place] Vaccine, [id number], PF 07/29/2020 INFLUENZA, SPLIT VIRUS, TRIVALENT PF 01/28/2020 Influenza High-Dose Quadriva lent Preservative Free IM 02/12/2023,03/19/2022 Influenza High-Dose Trivalen t Preservative Free IM 02/24/2024,01/29/2019,02/06/2018,03/01 Influenza Quadrivalent Adjuv anted Preservative Free IM 01/20/2021 Influenza Quadrivalent Prese rvative Free IM 02/06/2015 Influenza Quadrivalent w/ Pr eservative IM 01/29/2019,02/06/2018 Influenza Trivalent Adjuvant ed Preservative free IM 02/04/2017 Influenza, Unspecified Formulation 01/28/2020, Pneumococcal polysaccharide PPSV23 09/28/2009 Pneumococcal, Unspecified Formulation 06/28/2014 ,09/28/2009 RSV Vaccine (monovalent, adjuvanted) 05/06/2023 Tdap 02/06/2015,09/28/2009 Tetanus toxoid, unspecified formulation 09/28/2009,09/25/2009 Zoster recombinant 12/03/2019,07/20/2019 Family History Medical History Relation Comments Diabetes Father Pancreatic cancer Mother No Known Problems Sister No Known Problems Son 1 No Known Problems Son 2 Relation Status Comments Brother 1 Alive Brother 2 Alive Father (Age 67) Mother (Age 82) Sister Alive Son 1 Alive Son 2 Alive Social History Tobacco Use Types Packs/Day Years Used Date Smoking Tobacco: Former Cigarettes 10 15 1 965 - 1979 Smokeless Tobacco: Never Tobacco Cessation:Counseling Given: Not Answered Comments:Quit smoking 1979 Alcohol Use Standard Drinks/Week Comments Not Currently 0 (1 standard drink = 0.6 oz pur e alcohol) occasionally Home Health Assessment: Transportation Answer Date Recorded Lack of Transportation (Medical) No 10/28/2024 Lack of Transportation (Non-Medical) No 10/28/2024 Patient Unable or Declines to Respond No 10/28/2024 Education Answer Date Recorded Are you interested [...] file Not on file Not on file Last Filed Vital Signs Vital Sign Reading Time Taken Comments Blood Pressure 120/68 02/18/2025 10:56 AM EDT Pulse 66 02/18/2025 10:56 AM EDT Temperature 36.6 C (97.8 F) 02/18/2025 10:56 AM EDT Respiratory Rate 16 10/04/2024 7:54 AM EDT Oxygen Saturation 99% 02/18/2025 10:56 AM EDT Inhaled Oxygen Concentration - - Weight 43.2 kg (95 lb 3.2 oz) 02/18/2025 10:56 A M EDT Height 144.8 cm (4' 9.01 ) 02/18/2025 10:56 AM E DT Body Mass Index 20.6 02/18/2025 10:56 AM EDT Plan of Treatment Upcoming Encounters Date Type Department Care Team (Late st Contact Info) Description 04/01/2025 9:00 AM EST Office Visit [facility] [address] [place] [address] [place] [address] Canelo Baron MD [address] [place] [address], [address] [place] [address] 05/04/2025 10:00 AM EST Office Visit [facility] [address] [place] [address] Unknown, Unknown, Suzanne Flynn, HOTEL ASSISTANT GENERAL MANAGER [address] [place] [address] 08/30/2025 11:00 AM EDT Office Visit [facility] [address] [place] [address] Azam Nicolas MD [address] [place] [address], [address] [place] [address] [email or web address] Health Maintenance Due Date Last Done Comments COLOGUARD 02/04/1993 FIT TEST 02/04/1993 SIGMOIDOSCOPY 02/04/1993 VIRTUAL COLONOSCOPY 02/04/1993 DIABETIC EYE EXAM 02/01/2021 02/02/2020 FOBT 02/02/2021 02/03/2020 Adult Td,Tdap Booster 02/06/2025 02/06/2015, 010 COLONOSCOPY 04/11/2025 04/11/2020, 11/10/2015 COLORECTAL CANCER SCREENING 04/11/2025 HEMOGLOBIN A1C 07/19/2025 01/19/2025, 0907/2024, 07/23/2024, Additional history exists COVID-19 VACCINE (2024- season) 2025 01/25/2025, 09/21/2024, 01/27/2024, Additional history exists DEPRESSION SCREENING 08/10/2025 08/10/2024 BLOOD PRESSURE 08/19/2025 02/18/2025 PNEUMOCOCCAL VACCINES (50+ years) (2 of 2 - PCV) 02/13/2050 09/28/2009 Postponed from 09/28/2010 (Not Clinically Appropriate) ZOSTER VACCINES Completed 12/03/2019, 07/20/2019 OSTEOPOROSIS SCREENING INITIAL (ONE-TIME) Completed 03/07/2020 RSV VACCINE Completed 05/06/2023 HEPATITIS C SCREENING Completed 04/04/2024, 018 INFLUENZA VACCINE Completed 01/16/2025, , 02/12/2023, Additional history exists SMOKING STATUS SCREENING (Once After 26 Yrs) Completed 02/18/2025 HIB VACCINES Aged Out No longer eligi ble based on patient's age to complete this topic MENINGOCOCCAL VACCINES (ACWY) Aged Out No longer eligible based on patient's age to complete this topic MENINGOCOCCAL VACCINES (B) Aged Out N o longer eligible based on patient's age to complete this topic Medical Devices Implanted Type Area Blood Tester Device Identifier Shelf Expiration Date Model / Serial / Lot Synthes 6.5 Cannulated Screw Implanted:Qty: 2 on 10/03/2024 by Coy Arevalo MD at [facility] Left: Hip SYNTHES / [id number] / Synthes 6.5 Cannulated Screw Implanted:Qty: 1 on 10/03/2024 by Coy Arevalo MD at [facility] Left: Hip SYNTHES / [id number] / Procedures Procedure Name Priority Date/Time Associated Diagnosis Comments XR HIP 1 VW LEFT PLUS PELVIS Routine 01/19/2025 1:43 PM EDT Status post open reduction with internal fixation of fracture HEMOGLOBIN A1C Routine 04/04/2024 4:25 PM EST HEPATITIS C ANTIBODY, QUALITATIVE Routine 04/04/2024 4:14 PM EST ENDOSCOPY, COLON 04/11/2020 11:4 4 AM EST BD DXA AXIAL (SPINE) WITH HIP Routine 03/07/2020 9:07 AM EDT Localized osteoporosis without current pathological fracture FECAL OCCULT BLOOD, MULTIPLE Routine 02/03/2020 10:14 AM EDT Diarrhea, unspecified type HM DIABETES EYE EXAM FOR RESULT ENTRY ONLY Routine 02/02/2020 from Last 3 Months or Most Recently Relevant to Health Maintenance Results * XR HIP 1 VW LEFT PLUS PELVIS (01/19/2025 1:43 PM EDT) Narrative SYSTEMGENERATED, DOCUMENTATION - 01/19/2025 1:43 PM EDT This image report has been auto-finalized and has not been read by a Radiologist. Interpretation has been included in the provider encounter note for this date of service. us Coy Arevalo MD IMG XR PELVIS Final R esult * Hepatitis C antibody, qualitative (04/04/2024 4:14 PM EST) HCV NON-REACTI VE NON-REACTI VE [facility] Comment: This is a screening test and should be confirmed with molecular testing Blood 04/04/2024 4:14 PM EST 04/04/2024 4:26 PM EST us Maikel Bustos DO LAB BLOOD ORDERABLES Final Res ult [address] [id number] * ENDOSCOPY, COLON (04/11/2020 11:44 AM EST) Narrative Transcriptions Ti Pérez MD - 04/11/2020 11:44 AM EST Patient Name: Amanda Sutherland Attending MD:: TI PÉREZ MD Procedure Date: 04/11/2020 11:44AM Date of : 1950 Age: 70 Admit Type: Outpatient Gender: Female Room: [place] [address] Referring MD: Anita Blas Exam Type: Colonoscopy Indications: Last colonoscopy: October 2015, Clinically significant diarrhea of unexplained origin, Personal history of colonic polyps Medications: Propofol per Anesthesia Procedure: Informed consent was obtained from the patient after discussion of the indications, limitations, alternatives, benefits, and risks of the procedure. Risks specifically discussed include but are not limited to medication reactions, missed lesions, bleeding, perforation, or the need for emergentsurgery. Throughout the procedure, the patient's bloodpressure, pulse, end-tidal CO2, and oxygen saturations were monitored continuously. The Olympus pediatric variable colonoscopePCF-[id number] #6 was introduced through the anus and advanced tothe cecum, identified by appendiceal orifice andileocecal valve. The ileocecal valve, appendiceal orifice, and rectum were photographed. The colonoscopy wassomewhat difficult due to multiple diverticula in the colonand significant looping. Successful completion of the procedure was aided by applying abdominal pressure.The patient tolerated the procedure well. The quality of the bowel preparation was adequate. The bowel preparation used was GoLYTELY via split dose instruction. Complications: No immediate complications. Estimated blood loss:None. Findings: The digital rectal exam was normal. Pertinentnegatives include no palpable rectal lesions. Many small-mouthed diverticula were found in the sigmoid colon. There was evidence of diverticularspasm. The colon (entire examined portion) wassignificantly redundant. The colon was floppy , with a lax mesentary. The exam was otherwise without abnormality. Retroflexion in the right colon was performed. Biopsies for histology were taken with a coldforceps from the ascending colon, transverse colon and descending colon for evaluation of microscopiccolitis. Impression: - Moderate diverticulosis in the sigmoid colon.There was evidence of diverticular spasm. - Redundant colon. - The examination was otherwise normal. - Biopsies were taken with a cold forceps from the ascending colon, transverse colon and descendingcolon for evaluation of microscopic colitis. Recommendation: - Await pathology results. - Repeat colonoscopy in 5 years for surveillance. - Use fiber, for example Citrucel, Fibercon, Konsylor Metamucil. (She reports recent improvement). TI PÉREZ MD 04/11/2020 12:10:16 PM This report has been signed electronically. Number of Addenda: 0 Note Initiated On: 04/11/2020 11:44 AM Procedure Code(s): --- Professional --- 50601, Colonoscopy, flexible; with biopsy, single or multiple --- Technical --- 77934, Colonoscopy, flexible; with biopsy, single or multiple Diagnosis Code(s): --- Professional --- R19.7, Diarrhea, unspecified Z86.010, Personal history of colonic polyps K57.30, Diverticulosis of large intestine without perforation or abscess without bleeding Q43.8, Other specified congenital malformations of intestine --- Technical --- R19.7, Diarrhea, unspecified Z86.010, Personal history of colonic polyps K57.30, Diverticulosis of large intestine without perforation or abscess without bleeding Q43.8, Other specified congenital malformations of intestine CPT copyright 2018 [employer]. All rights reserved. The codes documented in this report are preliminary and upon drafting layout man reviewmay be revised to meet current compliance requirements. Procedure Date: 04/11/2020 11:44:39 AM [address] [place] [address] us Anita Blas DO GI PROCEDURE ORDERABLES Fi nal Result * BD DXA AXIAL (SPINE) WITH HIP (03/07/2020 9:07 AM EDT) Anatomical Region Laterality Modality Bone Density Bone Density 03/07/2020 1:40 PM EDT Impressions 03/07/2020 1:41 PM EDT Osteopenia. POS - [id number] Narrative 03/07/2020 1:41 PM EDT This is a 70-year-old postmenopausal white female who is not on estrogen replacement therapy, does not take calcium supplements, denies a family history of osteoporosis, and describes a perceived height loss of approximately 2 inches. Evaluation of the lumbar spine and hips was performed and felt to be technically adequate. Total bone mineral density in the L1-L4 vertebral bodies was calculated at 0.873 gm/cm2 with a T-score of -1.6 and Z-score of 0.6, falling within the WHO classification of osteopenia. Total bone mineral density in the right hip was calculated at 0.734 gm/cm2 with a T-score of -1.7 and Z-score of -0.1 falling within the WHO classification of osteopenia. Total bone mineral density in the left hip was calculated at 0.683 gm/cm2 with a T-score of -2.1 and Z-score of -0.5 falling within the WHO classification of osteopenia. Procedure Note Ti Gallegos MD - 03/07/2020 This is a 70-year-old postmenopausal white female who is not on estrogenreplacement therapy, does not take calcium supplements, denies a familyhistory of osteoporosis, and describes a perceived height loss ofapproximately 2 inches. Evaluation of the lumbar spine and hips was performed and felt to betechnically adequate. Total bone mineral density in the L1-L4 vertebral bodies was calculated at0.873 gm/cm2 with a T-score of -1.6 and Z-score of 0.6, falling within theWHO classification of osteopenia. Total bone mineral density in the right hip was calculated at 0.734 gm/sk4xajz a T-score of -1.7 and Z-score of -0.1 falling within the WHOclassification of osteopenia. Total bone mineral density in the left hipwas calculated at 0.683 gm/cm2 with a T-score of -2.1 and Z-score of-0.5 falling within the WHO classification of osteopenia. IMPRESSION: Osteopenia. POS - [id number] Anita Blas DO IMG BD BONE DENSITY DEXA F inal Result * Fecal occult blood, multiple (02/03/2020 10:14 AM EDT) FECAL OCC BLD 1 DATE 91,620 [facility] Occult bld, stool, #1 Negative Negative [facility] FECAL OCC BLD 2 DATE 91,720 [facility] OCCULT BLD, STOOL, #2 Negative Negative [facility] Stool (Stool) 02/03/2020 10: 14 AM EDT 02/03/2020 10:17 AM EDT Anita Blas DO BODY FLUIDS AND STOOLS ORD ERABLES Final Result [facility] [address] [place] [address] * DIABETES EYE EXAM FOR RESULT ENTRY ONLY (02/02/2020) Historical Provider HEALTH MAINTENANCE Edited Result - Final from Last 3 Months or Most Recently Relevant to Health Maintenance Insurance MEDICARE PART A & B Member Subscriber Plan / Payer ( fective 2013-Present) Name:Amanda Sutherland Member ID:[id number] Relation to Subscriber:Self Name:Amanda Sutherland Subscriber ID:[id number] Payer ID:[id number] Group ID:Not on file Type:Medicare Address: [employer]nb [address] [place] [id number] [place] [address] MEDICARE SUPPLEMENT MEDICARE PART A & B [facility] MEDICARE SUPPLEMENT MEDICARE PART A & B MEDICARE SUPPLEMENT MEDICARE PART A & B MEDICARE SUPPLEMENT MEDICARE PART A & B MEDICARE SUPPLEMENT MEDICARE PART A & B MEDICARE SUPPLEMENT MEDICARE PART A & B [facility] MEDICARE SUPPLEMENT MEDICARE PART A & B [facility] MEDICARE SUPPLEMENT MEDICARE PART A & B MEDICARE SUPPLEMENT [facility] MEDICARE SUPPLEMENT [facility] MEDIC[facility] SUPPLEMENT [facility] MEDICARE SUPPLEMENT [facility] MEDICARE SUPPLEMENT [facility] [place] MEDICARE SUPPLEMENT [facility] [place] MEDICARE SUPPLEMENT [facility] [place] MEDICARE SUPPLEMENT [facility] [place] MEDIC[facility] SUPPLEMENT Member Subscriber Plan / Payer (Ef fective 2017-Present) Name:Amanda Sutherland Relation to Subscriber:Self Name:Amanda Sutherland Payer ID:Not on file Type:Indemnity Address: [place] [id number] [facility] [place] MEDICARE SUPPLEMENT Advance Directives For more information, please contact: [phone] (9AM - 5PM [facility], Friday-Friday) Documents on File Type Date Recorded Patient Soap Press Feeder Expl anation Healthcare Proxy 04/12/2024 4:33 PM * Full Code (Latest Code Status on File) Date Activated Date Inactivated Comments 10/02/2024 10:19 PM Question Answer Comments Code Status Confirmed With: PatientFamily Code Status Communicated To: Inpatient Attending * Full Code Date Activated Date Inactivated Comments 04/04/2024 5:02 PM 10/02/2024 10:19 PM Question Answer Comments Code Status Confirmed With: Patient Code Status Communicated To: Inpatient Attending Care Teams Rehabilitation Program Coordinator Relationship Specialty Start Date End Date Azam Nicolas MD [address] [place] [address], [address] [place] [address] [email or web address] PCP - General Internal Medicine 09/22/20 Ti Pérez MD [address] [place] [address] Gastroenterology 11/09/20 Naif Blanco MD [address] [place] [address], [facility] [place] [address] [email or web address] Nephrology 11/09/20 Vanesa Soliman MD [address] [place] [address] [email or web address] Ophthalmology 11/09/20 Azam Nicolas MD [address] [place] [address], [address] [place] [address] [email or web address] Insurance Assigned Provider 08/23/23 Debbie Mendes MD [address] [place] [address], [address] [place] [address] Surgeon Urology 10/29/21 Kristy Zazueta MD [address] [place] [address], [address] [place] [address] [email or web address] Otolaryngology 10/29/21 Canelo Baron MD [address] [place] [address], [address] [place] [address] Obstetrics and Gynecology 6/13/22 Additional Source Comments The information contained in this document represents components of the legal health record. It is not the complete legal health record.[facility]
--- OUTSIDE RECORDS SUMMARY | 2025-03-07 13:54 | XMS_ITS | Encounter Summary ---
Author Organization [facility], Address [address] [place] [address] Phone Care Team Providers Care Boring Machine Operator Vertical Name Role Phone Azam Nicolas MD Primary Care Provider + [phone] Reason for Visit * Reason Comments Med Refill Encounter Details Date Type Department Care Team (Late st Contact Info) Description 06/08/2022 Refill [facility] [address] [place] [address] Naif Blanco MD [address] [place] [address] [place] [id number] Social History Tobacco Use Types Packs/Day Years [...] Exposure Response Date Recorded In the last 10 days, have yo u been in contact with someone who was confirmed or suspected to have Coronavirus/COVID-19? Yes 06/05/2022 10:40 AM EST documented as of this encounter Plan of Treatment Upcoming Encounters Date Type Department Care Team (Late st Contact Info) Description 04/04/2025 1:30 PM EST Clinical Support [facility], [address] [place] [address] 04/04/2025 2:15 PM EST Clinical Support [facility] [address] [place] [address] Galina Hernandez, [facility]- [address] [place] [address] documented as of this encounter Visit Diagnoses Not on filedocumented in this encounter Care Teams Boring Machine Operator Vertical Relationship Specialty Start Date End Date Azam Nicolas MD [address] [place] [address], [address] [place] [address] PCP - General Internal Medicine 10/29/21 documented as of this encounter
--- OUTSIDE RECORDS SUMMARY | 2025-03-07 13:55 | XMS_ITS | Encounter Summary ---
Author Organization [facility] Address [address] [place] [address] Phone Care Team Providers Care Travel Med Surg Rn Name Role Phone Tristan Beavers MD Primary Care Provider Wayne Nelson DO Primary Care Provider [phone] Wayne Nelson DO Unavailable Anita Blas DO Primary Care Provider [phone] Anita Blas DO Unavailable [phone] Azam Nicolas MD Primary Care Provider [phone] Jewel Casanova MD Unavailable [phone] Naif Blanco MD Unavailable [phone] Vanesa Soliman MD Unavailable [phone] Anita Blas DO Unavailable [phone] Azam Nicolas MD Unavailable [phone] Debbie Mendes MD Unavailable [phone] Kristy Zazueta MD Unavailable [phone] Canelo Baron MD Unavailable [phone] Palmira Aiken OT Unavailable [phone] Encounter Details Date Type Department Care Team (Late st Contact Info) Description 05/02/2017 Ancillary Orders Virtual Department [address] [place] [address] Debbie Mendes MD [address] [address] Midline cystocele Social History Tobacco Use Types Packs/Day Years Used Date Smoking Tobacco: Never Assessed Comments Unknown Sex and Gender Information Value Date Recorded Sex Assigned at Female 11/02/2019 5:38 PM EDT Legal Sex Female 10:05 PM EDT Gender Identity Female 11/02/2019 5:38 PM EDT Sexual Orientation Straight 11/02/2019 5: 38 PM EDT documented as of this encounter Plan of Treatment Upcoming Encounters Date Type Department Care Team ([facility] st Contact Info) Description 04/01/2025 9:00 AM EST Office Visit [facility] [address] [place] [address] [place] [address] Canelo Baron MD [address] [place] [address], [address] [place] [address] 05/04/2025 10:00 AM EST Office Visit [facility] [address] [place] [address] Unknown, Unknown, Suzanne Flynn, CARE WORKER [address] [place] [address] [email or web address] 08/30/2025 11:00 AM EDT Office Visit [facility] [address] [place] [address] [place] [address] Azam Nicolas MD [address] [place] [address], [address] [place] [address] documented as of this encounter Results * US Kidneys (05/15/2017 1:50 PM EST) Anatomical Region Laterality Modality Abdomen, Kidney Ultrasound 05/15/2017 1:58 PM EST Impressions 05/15/2017 2:28 PM EST Limited visualization of the right kidney and nonvisualization of the left. No abnormality detected at transplanted kidney in the right lower quadrant. POS [id number] Edited by: Janelle Gibbons on 05/15/2017 2:13 PM Narrative 05/15/2017 2:28 PM EST COMPARISON: None. FINDINGS: Kidneys: Left kidney not visualized. Right kidney is small and with probable cyst at its periphery measuring approximately 11 x 6 mm. The kidney is not well seen, however and small masses may be inapparent. There is no hydronephrosis. The transplanted kidney just inferior to the right mary's igloo kidney at the right lower quadrant is measured at 10.1 cm in length. Cortical mantle appears well-preserved. No perinephric fluid collections. No hydronephrosis. No stones or masses seen. Color-flow grossly preserved both cortically and centrally. Procedure Note Justen Sherwood MD - 05/15/2017 COMPARISON: None. FINDINGS: Kidneys: Left kidney not visualized. Right kidney is small and withprobable cyst at its periphery measuring approximately 11 x 6 mm. Thekidney is not well seen, however and small masses may be inapparent.There is no hydronephrosis. The transplanted kidney just inferior to theright mary's igloo kidney at the right lower quadrant is measured at 10.1 cm inlength. Cortical mantle appears well-preserved. No perinephric fluidcollections. No hydronephrosis. No stones or masses seen. Color-flowgrossly preserved both cortically and centrally. IMPRESSION: Limited visualization of the right kidney and nonvisualization of theleft. No abnormality detected at transplanted kidney in the right lowerquadrant. POS [id number] Edited by: Janelle Gibbons on 05/15/2017 2:13 PM Debbie Mendes MD [facility] RENAL Final Resu lt documented in this encounter Visit Diagnoses Diagnosis Midline cystocele Cystocele, midline Midline cystocele Cystocele, midline documented in this encounter Additional Health Concerns Infection Onset Date Last Indicated Resolved Time COVID-19 11/12/2022 11/12/2022 12/03/2022 1:21 AM EDT CoV-Risk Comment:Per note documentation 04/04/2024 04/04/2024 7:56 AM EST documented as of this encounter Care Teams Travel Med Surg Rn Relationship Specialty Start Date End Date Tristan Beavers MD [address] [place] [address] N._[place] [address] PCP - General Vascular Surgery 05/02/17 11/09/17 Wayne Nelson DO [address] [place] [address].[place] [address] [email or web address] PCP - General Internal Medicine 11/10/17 10/31/19 Anita Blas DO [address] [place] [address] [email or web address] PCP - General Family Medicine 11/01/19 09/21/20 Azam Nicolas MD [address] [place] [address], [address] [place] [address] [email or web address] PCP - General Internal Medicine 09/22/20 Wayne Nelson DO [address] [place] [address] [place] [address] [email or web address] Internal Medicine 11/10/17 10/31/19 Anita Blas DO [address] [place] [address] Insurance Assigned Provider 08/26/20 09/19/20 Jewel Casanova MD [address] [place] [address] [email or web address] Gastroenterology 11/09/20 Naif Blanco MD [address] [place] [address] [place] [address] [email or web address] Nephrology 11/09/20 Vanesa Soliman MD [address] [place] [address] [email or web address] 11/09/20 Anita Blas DO [address] [place] [address] [email or web address] Insurance Assigned Provider 08/26/20 08/25/21 Azam Nicolas MD [address] [place] [address], [address] [place] [address] [email or web address] Insurance Assigned Provider 08/23/23 Debbie Mendes MD [address] [place] [address], [address] [place] [address] [email or web address] Surgeon Urology 10/29/21 Kristy Zazueta MD [address] [place] [address], [address] [place] [address] Otolaryngology 10/29/21 Canelo Baron MD [address] [place] [address] [address] [place] [address] [email or web address] Obstetrics and Gynecology 10/29/21 Palmira Aiken, OT [address] [place] [address] [email or web address] Transitions Rolling Machine TenderCio Therapy 10/04/24 10/04/24 documented as of this encounter Additional Source Comments The information contained in this document represents components of the legal health record. It is not the complete legal health record.[facility]
== END 2025-03-07 11:15 | disposition home or self-care (01) ==
LOC: HO.MAMMO 11:14
PROVIDERS: PCP Internal Medicine; Visit Provider Internal Medicine
DX: Z12.31 Encounter for screening mammogram for malignant neoplasm of breast (principal)
CPT/HCPCS: 77063; 77067

== ENCOUNTER → 2025-03-07 11:30 | Outpatient (BNV) | payer MEDICARE, OTHER, SELFPAY | PROVIDERS: PCP Internal Medicine; Visit Provider Internal Medicine | DX: Z12.31 Encounter for screening mammogram for malignant neoplasm of breast (principal) | CPT/HCPCS: 77063; 77067 ==